=== PATIENT | male | born 1975 | race Caucasian/White ===

== ENCOUNTER 2016-12-19 07:45 | Emergency (ER) | payer MEDICAID ==
[2016-12-19 07:51] VITALS: RESP 18
[2016-12-19] MEDS ORDERED: NS 1,000 ML IV ONE (07:54)
[2016-12-19] MEDS ORDERED: ONDANSETRON 4 MG/2 ML VIAL IVP ONE (07:54)
[2016-12-19 08:07] LABS: % IMMATURE GRANULYOCYTES 0.3 % (0.0-1.1); ABSOLUTE IMMATURE GRANULOCYTES 0.04 10^3/uL (0.00-0.10); ADD DIFF? NO; ADD MORPH? NO; ADD SCAN? NO; ATYPICAL LYMPHOCYTE FLAG 0 (0-99); FRAGMENT RBC FLAG 0 (0-99); HEMOGLOBIN 15.7 g/dL (13.7-17.5); LEFT SHIFT FLG 0 (0-99); LIPEMIA HEMOLYSIS FLAG 90 (0-99); MEAN CELL HEMOGLOBIN 31.7 pg (27.9-34.1); MEAN CELL HEMOGLOBIN CONCENTR. 34.9 g/dL (32.4-36.7); MEAN CELL VOLUME 90.7 fL (81.5-99.8); MEAN PLATELET VOLUME 9.7 fL (8.7-11.7); PLATELET CLUMPS FLAG 10 (0-99); PLATELET COUNT 221 10^3/uL (150-400); RED BLOOD CELL COUNT 4.96 10^6/uL (4.40-6.38); RED CELL DISTRIBUTION WIDTH 12.5 % (11.5-15.2)
--- NOTE | 2016-12-19 08:17 | EDPHY ---
HPI/HX/ROS/PE/MDM Narrative: CHIEF COMPLAINT: "I've been vomiting and my whole body hurts" HPI: The patient is a homeless 41 y/o male complaining of vomiting and myalgias that woke him from sleep about 4 hours ago. He complains of an associated cough and fever. He denies abdominal pain, dysuria, diarrhea. He denies pertinent medical history. He did not receive a flu vaccination this season. REVIEW OF SYSTEMS: Aside from elements discussed in the HPI, a comprehensive 10-point review of systems was reviewed and is negative. PMH: Denies SOCIAL HISTORY: Homeless PHYSICAL EXAM: General:Patient is alert, in no acute distress. ENT:Eyes are normal to inspection. ENT inspection normal. Neck: Normal inspection. Full range of motion. Respiratory:No respiratory distress. Breath sounds normal bilaterally. Cardiovascular: Regular rate and rhythm. Strong peripheral pulses. Normal cap refill. Abdomen:The abdomen is nontender to palpation. There are no peritoneal signs. There are normal bowel sounds. Back: Normal to inspection. No tenderness to palpation. Skin: Normal color. No rash. Warm and dry. Extremities: Normal appearance. Full range of motion. Neuro: Oriented x3. Normal motor function. Normal sensory function. ED Course: IV established. Labs drawn including CBC, CHEM. Flu swab ordered. 1L IV NS and 4mg IV Zofran administered. Patient has tolerated PO fluids and feels improved. He will be discharged home with standard viral syndrome instructions and referral to [facility] if needed. He is comfortable with this plan. MDM: This patient presents with fairly nonspecific symptoms of vomiting and diffuse malaise. His vital signs are normal. He is afebrile and is not hypoxic. Review of his medical records indicates least one other visit for nausea and vomiting of unspecified cause. The patient has no chest pain or abdominal pain or tenderness on exam. His lipase is negative. The etiology of his symptoms is unclear, but he is tolerating food and fluids by mouth without difficulty and remains comfortable. I think he is safe for outpatient workup. - Data Points Laboratory Results: Laboratory Results 12/19/16 07:59 12/19/16 07:59 12/19/16 12/19/16 12/19/16 08:22 07:59 07:59 WBC RBC Hgb Hct MCV MCH MCHC RDW Plt Count MPV Neut % (Auto) Lymph % (Auto) [place] % (Auto) Eos % (Auto) Baso % (Auto) Nucleat RBC Rel Count Absolute Neuts (auto) Absolute Lymphs (auto) Absolute Monos (auto) Absolute Eos (auto) Absolute Basos (auto) Absolute Nucleated RBC Immature Gran % Immature Gran # Sodium 142 mEq/L mEq/L (134-144) Potassium 4.4 mEq/L mEq/L (3.5-5.2) Chloride 106 mEq/L mEq/L (97-110) Carbon Dioxide 25 mEq/l mEq/l (22-31) Anion Gap 11 mEq/L mEq/L (8-16) BUN 19 mg/dL mg/dL (7-23) Creatinine 0.8 mg/dL mg/dL (0.7-1.3) Estimated GFR > 60 Glucose 99 mg/dL mg/dL (70-100) Calcium 9.3 mg/dL mg/dL (8.5-10.4) Lipase 38.0 IU/L IU/L (23-300) Influenza Typ A,B (DFA) NEGATIVE FOR FLU (NEGATIVE) 12/19/16 07:59 WBC 11.61 10^3/uL H 10^3/uL (3.80-9.50) RBC 4.96 10^6/uL 10^6/uL (4.40-6.38) Hgb 15.7 g/dL g/dL (13.7-17.5) Hct 45.0 % % (40.0-51.0) MCV 90.7 fL fL (81.5-99.8) MCH 31.7 pg pg (27.9-34.1) MCHC 34.9 g/dL g/dL (32.4-36.7) RDW 12.5 % % (11.5-15.2) Plt Count 221 10^3/uL 10^3/uL (150-400) MPV 9.7 fL fL (8.7-11.7) Neut % (Auto) 86.4 % H % (39.3-74.2) Lymph % (Auto) 6.2 % L % (15.0-45.0) [place] % (Auto) 5.4 % % (4.5-13.0) Eos % (Auto) 1.2 % % (0.6-7.6) Baso % (Auto) 0.5 % % (0.3-1.7) Nucleat RBC Rel Count 0.0 % % (0.0-0.2) Absolute Neuts (auto) 10.02 10^3/uL H 10^3/uL (1.70-6.50) Absolute Lymphs (auto) 0.72 10^3/uL L 10^3/uL (1.00-3.00) Absolute Monos (auto) 0.63 10^3/uL 10^3/uL (0.30-0.80) Absolute Eos (auto) 0.14 10^3/uL 10^3/uL (0.03-0.40) Absolute Basos (auto) 0.06 10^3/uL 10^3/uL (0.02-0.10) Absolute Nucleated RBC 0.00 10^3/uL 10^3/uL (0-0.01) Immature Gran % 0.3 % % (0.0-1.1) Immature Gran # 0.04 10^3/uL 10^3/uL (0.00-0.10) Sodium Potassium Chloride Carbon Dioxide Anion Gap BUN Creatinine Estimated GFR Glucose Calcium Lipase Influenza Typ A,B (DFA) Medications Given: Discontinued Medications Sodium Chloride (Ns) 1,000 mls @ 0 mls/hr IV ONCE ONE PRN Reason: Wide Open Stop: 12/19/16 07:55 Last Admin: 12/19/16 08:07 Dose: 1,000 mls Ketorolac Tromethamine (Toradol) 30 mg IVP EDNOW ONE Stop: 12/19/16 08:55 Last Admin: 12/19/16 09:01 Dose: 30 mg Ondansetron HCl (Zofran) 4 mg IVP EDNOW ONE Stop: 12/19/16 07:55 Last Admin: 12/19/16 08:07 Dose: 4 mg General Time Seen by Provider: 12/19/16 08:11 Initial Vital Signs: Initial Vital Signs Temperature (C) 36.4 C 12/19/16 07:48 Heart Rate 92 12/19/16 07:48 Respiratory Rate 18 12/19/16 07:48 Blood Pressure 123/84 H 12/19/16 07:48 O2 Sat (%) 93 12/19/16 07:48 O2 Delivery Mode Room Air Allergies/Adverse Reactions: No Known Allergies Allergy (Verified 12/19/16 07:51) Home Medications: Medication Instructions Recorded NK [No Known Home Meds] 04/22/16 Departure - Departure Disposition: Home, Routine, Self-Care Clinical Impression: Nausea, Malaise Condition: Good Instructions: Acute Nausea and Vomiting (ED), Fatigue (ED) Additional Instructions: Follow up with your primary care provider for symptoms not improved over the next week. Use [id number] Tylenol or ibuprofen as directed on the packaging if needed for pain or fever. Referrals: [facility] [Outside] - As per Instructions Report Scribed for: Donald Cavazos Report Scribed by: Gabriela Mena Date of Report: 12/19/16 Time of Report: 08:16 Physician Review and Approval Statement: Portions of this note were transcribed by an ED scribe. I personally performed the history, physical exam, and medical decision making; and confirm the accuracy of the information in the transcribed note.
[2016-12-19 08:20] LABS: ANION GAP 11 mEq/L (8-16); CALCIUM 9.3 mg/dL (8.5-10.4); CARBON DIOXIDE 25 mEq/l (22-31); CHLORIDE 106 mEq/L (97-110); CREATININE 0.8 mg/dL (0.7-1.3); GLOMERULAR FILTRATION RATE > 60; GLUCOSE 99 mg/dL (70-100); POTASSIUM 4.4 mEq/L (3.5-5.2); SODIUM 142 mEq/L (134-144)
[2016-12-19] MEDS ORDERED: KETOROLAC 30 MG/1 ML SDV IVP ONE (08:54)
[2016-12-19 11:34] VITALS: BP 114/80; PULSE 86; TEMP 98.2; O2SAT 92
== END 2016-12-19 11:42 | disposition home or self-care (01) ==
DX: R53.81 Other malaise (principal); R11.0 Nausea; R05 Cough; R50.9 Fever, unspecified
CPT/HCPCS: 96374; J1885; J2405

== ENCOUNTER 2017-01-22 13:51 | Emergency (ER) | payer MEDICAID ==
[2017-01-22] MEDS ORDERED: NS 1,000 ML IV ONE ×2 (14:18→15:15)
[2017-01-22] MEDS ORDERED: ONDANSETRON 4 MG/2 ML VIAL IVP ONE (14:18)
--- NOTE | 2017-01-22 14:20 | EDPHY ---
H & P Stated Complaint: N/V for 5 days and diarrhea since this morning. Time Seen by Provider: 01/22/17 14:17 HPI/ROS: CHIEF COMPLAINT: Nausea vomiting diarrhea x5 days HISTORY OF PRESENT ILLNESS: 41-year-old male history of daily marijuana use, history of daily heavy alcohol use, last drink of alcohol 7 days ago, complaining of nausea, vomiting, diarrhea x5 days. No abdominal pain. No fever or chills. No back or flank pain. No chest pain. No dyspnea. No rash. No trauma. No melena or hematochezia PRIMARY CARE PROVIDER: REVIEW OF SYSTEMS: A ten point review of systems was performed and is negative with the exception of the items mentioned in the HPI PAST MEDICAL & SURGICAL HISTORY: Prior history of similar SOCIAL HISTORY: Daily marijuana, daily alcohol PHYSICAL EXAM (Prior to examination, patient consented to physical exam, hands were washed and my usual and customary physical exam procedures followed) 1) GENERAL: Well-developed, well-nourished, alert and oriented. . 2) HEAD: Normocephalic, atraumatic 3) HEENT: Pupils equal, round, reactive to light bilaterally. Sclera anicteric. Nasopharynx, oropharynx, clear, no lesions. Dry mucous membranes 4) NECK: Full range of motion, no meningeal signs. 5) LUNGS: Clear auscultation bilaterally, no wheezes, no rhonchi, no retractions. 6) HEART: Regular rate and rhythm, no murmur, no heave, no gallop. 7) ABDOMEN: No guarding, no rebound, no focal tenderness, negative McBurney's, negative Fam's, negative Rovsing's, negative peritoneal sign, flat, unable to elicit any abdominal pain on exam 8) MUSCULOSKELETAL: Moving all extremities, no focal areas of tenderness, no obvious trauma. No peripheral edema or discoloration. 9) BACK: No CVA tenderness. 10) SKIN: No rash, no petechiae. 11) Psychiatric: Patient is oriented X 3, there is no agitation. DIFFERENTIAL DIAGNOSIS: My differential diagnosis includes, but is not limited to, cannabis hyperemesis syndrome, cyclic vomiting syndrome, acute appendicitis, acute cholecystitis, bowel obstruction, acute pancreatitis, gastritis . The patient understands that this diagnosis is provisional and can never be 100% accurate. This is a partial list of diagnoses considered. These considerations are based on history, physical exam, past history and reassessment. - Personal History Current Tetanus Diphtheria and Acellular Pertussis (TDAP): Yes - Medical/Surgical History Hx Asthma: No Hx Chronic Respiratory Disease: No Hx Diabetes: No Hx Cardiac Disease: No Hx Renal Disease: No Hx Cirrhosis: No Hx Alcoholism: No Hx HIV/AIDS: No Hx Splenectomy or Spleen Trauma: No Other PMH: Pneumonia 2013 - Social History Smoking Status: Current every day smoker Constitutional: Initial Vital Signs Temperature (C) 36.9 C 01/22/17 14:03 Heart Rate 82 01/22/17 14:03 Respiratory Rate 18 01/22/17 14:03 Blood Pressure 112/69 01/22/17 14:03 O2 Sat (%) 97 01/22/17 14:03 O2 Delivery Mode Nasal Cannula O2 (L/minute) 3 Allergies/Adverse Reactions: No Known Allergies Allergy (Verified 12/19/16 07:51) Home Medications: Medication Instructions Recorded Ondansetron Odt [Zofran Odt] 4 mg PO Q4PRN PRN #10 tab 01/22/17 Pantoprazole Sodium [Protonix 40mg 40 mg PO DAILY #30 tab 01/22/17 (RX)] Medical Decision Making ED Course/Re-evaluation: 2:24 p.m.: Old medical records reviewed. Will administer IV fluids, IV Haldol Zofran reassess 2:59 p.m.: Re-evaluation after IV Haldol, Zofran, complaining of continued nausea without abdominal pain 3:55 p.m.: Re-evaluation, sleeping. Easily woken. Appears comfortable. Will attempt oral intake challenge. If successful will be discharged. At this time I think that acute surgical abdominal pathology, acute appendicitis, bowel obstruction, acute cholecystitis, less than likely in this patient. I stressed the importance of follow up with Gastroenterology. Stressed the importance of alcohol and marijuana cessation. Discussed his H and H which will need to be recheck. No indication for emergent transfusion hospitalization. He remains hemodynamically stable. - Data Points Laboratory Results: Laboratory Results 01/22/17 14:30 01/22/17 14:30 01/22/17 01/22/17 14:30 14:30 WBC 13.49 10^3/uL H 10^3/uL (3.80-9.50) RBC 4.16 10^6/uL L 10^6/uL (4.40-6.38) Hgb 13.2 g/dL L g/dL (13.7-17.5) Hct 36.8 % L % (40.0-51.0) MCV 88.5 fL fL (81.5-99.8) MCH 31.7 pg pg (27.9-34.1) MCHC 35.9 g/dL g/dL (32.4-36.7) RDW 11.8 % % (11.5-15.2) Plt Count 301 10^3/uL 10^3/uL (150-400) MPV 9.1 fL fL (8.7-11.7) Neut % (Auto) 75.5 % H % (39.3-74.2) Lymph % (Auto) 12.5 % L % (15.0-45.0) [place] % (Auto) 11.1 % % (4.5-13.0) Eos % (Auto) 0.1 % L % (0.6-7.6) Baso % (Auto) 0.4 % % (0.3-1.7) Nucleat RBC Rel Count 0.0 % % (0.0-0.2) Absolute Neuts (auto) 10.18 10^3/uL H 10^3/uL (1.70-6.50) Absolute Lymphs (auto) 1.69 10^3/uL 10^3/uL (1.00-3.00) Absolute Monos (auto) 1.50 10^3/uL H 10^3/uL (0.30-0.80) Absolute Eos (auto) 0.01 10^3/uL L 10^3/uL (0.03-0.40) Absolute Basos (auto) 0.05 10^3/uL 10^3/uL (0.02-0.10) Absolute Nucleated RBC 0.00 10^3/uL 10^3/uL (0-0.01) Immature Gran % 0.4 % % (0.0-1.1) Immature Gran # 0.06 10^3/uL 10^3/uL (0.00-0.10) Sodium 131 mEq/L L mEq/L (134-144) Potassium 4.1 mEq/L mEq/L (3.5-5.2) Chloride 96 mEq/L L mEq/L (97-110) Carbon Dioxide 24 mEq/l mEq/l (22-31) Anion Gap 11 mEq/L mEq/L (8-16) BUN 8 mg/dL mg/dL (7-23) Creatinine 0.7 mg/dL mg/dL (0.7-1.3) Estimated GFR > 60 Glucose 91 mg/dL mg/dL (70-100) Calcium 8.6 mg/dL mg/dL (8.5-10.4) Total Bilirubin 1.1 mg/dL mg/dL (0.1-1.4) Conjugated Bilirubin 0.3 mg/dL mg/dL (0.0-0.5) Unconjugated Bilirubin 0.8 mg/dL mg/dL (0.0-1.1) AST 18 IU/L IU/L (17-59) ALT 30 IU/L IU/L (21-72) Alkaline Phosphatase 71 IU/L IU/L (38-126) Total Protein 6.5 g/dL g/dL (6.3-8.2) Albumin 3.3 g/dL L g/dL (3.5-5.0) Lipase 42.0 IU/L IU/L (23-300) Medications Given: Discontinued Medications Diphenhydramine HCl (Benadryl Injection) 25 mg IVP EDNOW ONE Stop: 01/22/17 15:00 Last Admin: 01/22/17 15:15 Dose: 25 mg Haloperidol Lactate (Haldol Injection) 2.5 mg IVP EDNOW ONE Stop: 01/22/17 14:25 Last Admin: 01/22/17 14:40 Dose: 2.5 mg Sodium Chloride (Ns) 1,000 mls @ 0 mls/hr IV ONCE ONE PRN Reason: Wide Open Stop: 01/22/17 14:19 Last Admin: 01/22/17 14:35 Dose: 1,000 mls Sodium Chloride (Ns) 1,000 mls @ 0 mls/hr IV ONCE ONE PRN Reason: Wide Open Stop: 01/22/17 15:16 Last Admin: 01/22/17 15:15 Dose: 1,000 mls Lorazepam (Ativan Injection) 1 mg IVP EDNOW ONE Stop: 01/22/17 15:00 Last Admin: 01/22/17 15:20 Dose: 1 mg Metoclopramide HCl (Reglan Injection) 10 mg IVP EDNOW ONE Stop: 01/22/17 15:00 Last Admin: 01/22/17 15:15 Dose: 10 mg Ondansetron HCl (Zofran) 4 mg IVP EDNOW ONE Stop: 01/22/17 14:19 Last Admin: 01/22/17 14:35 Dose: 4 mg Departure - Departure Disposition: Home, Routine, Self-Care Clinical Impression: Nausea & vomiting Qualifiers: Vomiting type: unspecified Vomiting Intractability: non-intractable Qualified Code(s): R11.2 - Nausea with vomiting, unspecified Condition: Good Instructions: Acute Nausea and Vomiting (ED) Additional Instructions: Seek immediate medical attention if you develop new or worsening symptoms, if you develop fevers, chills, inability to tolerate oral intake or any other symptoms that concerns you. Recommend you stop using marijuana and alcohol. Recommend you follow up with a receiver/laborer. Referrals: [facility],. [Clinic] - 1 day without fail Monroe Garcia MD [Medical Doctor] - 5-7 days, call for appt. (Dr. Monroe Garcia is a receiver/laborer) Prescriptions: Ondansetron Odt [Zofran Odt] 4 mg PO Q4PRN PRN #10 tab PRN Reason: Nausea Pantoprazole Sodium [Protonix 40mg (RX)] 40 mg PO DAILY #30 tab
[2017-01-22] MEDS ORDERED: HALOPERIDOL LACT 5 MG/ML INJ IVP ONE (14:24)
[2017-01-22 14:40] LABS: % IMMATURE GRANULYOCYTES 0.4 % (0.0-1.1); ABSOLUTE IMMATURE GRANULOCYTES 0.06 10^3/uL (0.00-0.10); ADD DIFF? NO; ADD MORPH? NO; ADD SCAN? NO; ATYPICAL LYMPHOCYTE FLAG 10 (0-99); FRAGMENT RBC FLAG 0 (0-99); HEMATOCRIT 36.8 % (40.0-51.0); HEMOGLOBIN 13.2 g/dL (13.7-17.5); LEFT SHIFT FLG 0 (0-99); LIPEMIA HEMOLYSIS FLAG 90 (0-99); MEAN CELL HEMOGLOBIN 31.7 pg (27.9-34.1); MEAN CELL HEMOGLOBIN CONCENTR. 35.9 g/dL (32.4-36.7); MEAN CELL VOLUME 88.5 fL (81.5-99.8); MEAN PLATELET VOLUME 9.1 fL (8.7-11.7); PLATELET CLUMPS FLAG 0 (0-99); PLATELET COUNT 301 10^3/uL (150-400); RED BLOOD CELL COUNT 4.16 10^6/uL (4.40-6.38); RED CELL DISTRIBUTION WIDTH 11.8 % (11.5-15.2)
[2017-01-22 14:52] LABS: ALANINE AMINOTRANSFERASE 30 IU/L (21-72); ALBUMIN 3.3 g/dL (3.5-5.0); ALKALINE PHOSPHATASE 71 IU/L (38-126); ANION GAP 11 mEq/L (8-16); ASPARTATE AMINOTRANSFERASE 18 IU/L (17-59); BILIRUBIN,TOTAL 1.1 mg/dL (0.1-1.4); BILIRUBIN-CONJUGATED 0.3 mg/dL (0.0-0.5); BILIRUBIN-UNCONJUGATED 0.8 mg/dL (0.0-1.1); CALCIUM 8.6 mg/dL (8.5-10.4); CARBON DIOXIDE 24 mEq/l (22-31); CHLORIDE 96 mEq/L (97-110); CREATININE 0.7 mg/dL (0.7-1.3); GLOMERULAR FILTRATION RATE > 60; GLUCOSE 91 mg/dL (70-100); POTASSIUM 4.1 mEq/L (3.5-5.2); SODIUM 131 mEq/L (134-144); TOTAL PROTEIN 6.5 g/dL (6.3-8.2)
[2017-01-22] MEDS ORDERED: METOCLOPRAMIDE 10 MG/2 ML VIAL IVP ONE (14:59)
[2017-01-22] MEDS ORDERED: LORazepam 2 MG/ML INJ IVP ONE (14:59)
[2017-01-22 15:02] VITALS: RESP 20
[2017-01-22 16:07] VITALS: TEMP 99.7
[2017-01-22] MEDS ORDERED: ACETAMINOPHEN 500 MG TAB PO ONE (16:20)
[2017-01-22] MEDS ORDERED: ACETAMINOPHEN 500 MG TAB ONE (16:21)
[2017-01-22 16:25] VITALS: BP 108/66; PULSE 87; O2SAT 94
== END 2017-01-22 16:30 | disposition home or self-care (01) ==
DX: R11.2 Nausea with vomiting, unspecified (principal); F17.200 Nicotine dependence, unspecified, uncomplicated
CPT/HCPCS: 96374; J1200; J2060; J2405; J2765

== ENCOUNTER 2017-05-13 03:48 | Observation (INO) | payer MEDICAID ==
[2017-05-13 04:03] LABS: % IMMATURE GRANULYOCYTES 0.5 % (0.0-1.1); ABSOLUTE IMMATURE GRANULOCYTES 0.06 10^3/uL (0.00-0.10); ADD DIFF? NO; ADD MORPH? NO; ADD SCAN? NO; ATYPICAL LYMPHOCYTE FLAG 30 (0-99); FRAGMENT RBC FLAG 0 (0-99); HEMATOCRIT 44.4 % (40.0-51.0); HEMOGLOBIN 14.8 g/dL (13.7-17.5); LEFT SHIFT FLG 0 (0-99); LIPEMIA HEMOLYSIS FLAG 80 (0-99); MEAN CELL HEMOGLOBIN 30.7 pg (27.9-34.1); MEAN CELL HEMOGLOBIN CONCENTR. 33.3 g/dL (32.4-36.7); MEAN CELL VOLUME 92.1 fL (81.5-99.8); MEAN PLATELET VOLUME 9.1 fL (8.7-11.7); PLATELET CLUMPS FLAG 50 (0-99); PLATELET COUNT 425 10^3/uL (150-400); RED BLOOD CELL COUNT 4.82 10^6/uL (4.40-6.38); RED CELL DISTRIBUTION WIDTH 13.2 % (11.5-15.2)
[2017-05-13] MEDS ORDERED: LIDOCAINE 1% 300 MG/30 ML SDV ONE (04:08)
[2017-05-13] MEDS ORDERED: fentaNYL 100 MCG/2 ML INJ ONE (04:09)
[2017-05-13] MEDS ORDERED: NS 1,000 ML IV ONE (04:09)
[2017-05-13] MEDS ORDERED: MIDAZOLAM 2 MG/2 ML VIAL ONE (04:09)
[2017-05-13] MEDS ORDERED: IOPAMIDOL (ISOVUE-370) 150 ML BTL IV ONE (04:09)
--- NOTE | 2017-05-13 04:09 | EDPHY ---
H & P Stated Complaint: CHEST PAIN 08/04 WOKE PT UP Time Seen by Provider: 05/13/17 03:52 HPI/ROS: HPI The patient presents brought in by ambulance as cardiac alert with chest pain that began at about 3:00 a.m. when he awoke from sleep after hearing his roommates alarm clock. He says the pain is crushing in nature, in the left side of his chest, has been constant and is severe. He has associated shortness of breath, nausea and vomiting. The pain is not positional. He has no prior history of similar pain. He is a half a pack a day smoker, denies any family history of CAD. He drinks alcohol and his last alcoholic drink was at 5: 00 p.m. last night. REVIEW OF SYSTEMS Constitutional: No fever, no chills. Eyes: No discharge. ENT: No sore throat. Cardiovascular: Positive for chest pain, no palpitations. Respiratory: No cough, positive for shortness of breath. Gastrointestinal: No abdominal pain, no vomiting. Genitourinary: No hematuria. Musculoskeletal: No back pain. Skin: No rashes. Neurological: No headache. PMHx: Denies any past medical history Soc Hx: Smoker, lives with roommates, who uses marijuana for back pain PHYSICAL General Appearance: Alert, uncomfortable appearing Eyes: Pupils equal and round no pallor or injection ENT, Mouth: Mucous membranes moist Respiratory: There are no retractions, lungs are clear to auscultation Cardiovascular: Regular rate and rhythm Gastrointestinal: Abdomen is soft and non-tender, no masses, bowel sounds normal Neurological: A&O, moves all extremities Skin: Warm and dry, no rashes Musculoskeletal: Neck is supple non tender Extremities: symmetrical, full range of motion Psychiatric: Patient is oriented X 3, there is no agitation Source: Patient, EMS, Old records Exam Limitations: No limitations - Personal History Current Tetanus/Diphtheria Vaccine: Yes Current Tetanus Diphtheria and Acellular Pertussis (TDAP): Yes - Medical/Surgical History Hx Asthma: No Hx Chronic Respiratory Disease: No Hx Diabetes: No Hx Cardiac Disease: No Hx Renal Disease: No Hx Cirrhosis: No Hx Alcoholism: No Hx HIV/AIDS: No Hx Splenectomy or Spleen Trauma: No Other PMH: Pneumonia 2013 - Social History Smoking Status: Current every day smoker Constitutional: Initial Vital Signs Temperature (C) 36.7 C 05/13/17 03:52 Heart Rate 89 05/13/17 03:52 Respiratory Rate 18 05/13/17 03:52 Blood Pressure 144/100 H 05/13/17 03:52 O2 Sat (%) 95 05/13/17 03:52 O2 Delivery Mode Room Air Allergies/Adverse Reactions: No Known Allergies Allergy (Verified 05/13/17 04:04) Home Medications: Medication Instructions Recorded NK [No Known Home Meds] 05/13/17 Medical Decision Making - Diagnostics EKG Interpretation: EKG: Complete interpretation has been separately recorded in the [employer] archive. Summary impression: ST segment elevation in 2, AVF, no old for comparison Differential Diagnosis: This is a 41-year-old male, history of tobacco smoking who presents brought in by ambulance for severe chest pain which awoke him from sleep which is left- sided, crushing, associated with shortness of breath, nausea and vomiting. He has no prior history of similar. Differential diagnosis includes ACS, pericarditis, myocarditis, GERD. In the emergency room, patient was placed immediately to a high acuity room. I met the paramedics at the bedside to obtain their report. I reviewed the EKGs. The patient has already received aspirin. He was placed on the cardiac nurse practitioner. Vital signs were stable though he was slightly hypertensive. He was given morphine for pain. Dr. Guevara from Cardiology plans to take the patient to the cardiac catheterization lab. - Data Points Laboratory Results: Laboratory Results 05/13/17 03:50 05/13/17 05/13/17 03:50 03:50 WBC 12.02 10^3/uL H 10^3/uL (3.80-9.50) RBC 4.82 10^6/uL 10^6/uL (4.40-6.38) Hgb 14.8 g/dL g/dL (13.7-17.5) Hct 44.4 % % (40.0-51.0) MCV 92.1 fL fL (81.5-99.8) MCH 30.7 pg pg (27.9-34.1) MCHC 33.3 g/dL g/dL (32.4-36.7) RDW 13.2 % % (11.5-15.2) Plt Count 425 10^3/uL H 10^3/uL (150-400) MPV 9.1 fL fL (8.7-11.7) Neut % (Auto) 61.4 % % (39.3-74.2) Lymph % (Auto) 26.3 % % (15.0-45.0) [place] % (Auto) 9.3 % % (4.5-13.0) Eos % (Auto) 1.6 % % (0.6-7.6) Baso % (Auto) 0.9 % % (0.3-1.7) Nucleat RBC Rel Count 0.0 % % (0.0-0.2) Absolute Neuts (auto) 7.38 10^3/uL H 10^3/uL (1.70-6.50) Absolute Lymphs (auto) 3.16 10^3/uL H 10^3/uL (1.00-3.00) Absolute Monos (auto) 1.12 10^3/uL H 10^3/uL (0.30-0.80) Absolute Eos (auto) 0.19 10^3/uL 10^3/uL (0.03-0.40) Absolute Basos (auto) 0.11 10^3/uL H 10^3/uL (0.02-0.10) Absolute Nucleated RBC 0.00 10^3/uL 10^3/uL (0-0.01) Immature Gran % 0.5 % % (0.0-1.1) Immature Gran # 0.06 10^3/uL 10^3/uL (0.00-0.10) Sodium Pending Potassium Pending Chloride Pending Carbon Dioxide Pending Anion Gap Pending BUN Pending Creatinine Pending Estimated GFR Pending Glucose Pending Calcium Pending Troponin I Pending NT-Pro-B Natriuret Pep Pending Departure - Departure Disposition: [facility] Inpatient Acute Clinical Impression: Chest pain Qualifiers: Chest pain type: unspecified Qualified Code(s): R07.9 - Chest pain, unspecified Condition: Fair Referrals: Patient,NotPresent [Primary Care Provider] - As per Instructions
[2017-05-13 04:20] LABS: POTASSIUM 5.1 mEq/L (3.5-5.2); SODIUM 142 mEq/L (134-144)
[2017-05-13 04:21] LABS: ANION GAP 13 mEq/L (8-16); CALCIUM 9.3 mg/dL (8.5-10.4); CARBON DIOXIDE 22 mEq/l (22-31); CHLORIDE 107 mEq/L (97-110); CREATININE 0.7 mg/dL (0.7-1.3); GLOMERULAR FILTRATION RATE > 60; GLUCOSE 119 mg/dL (70-100)
[2017-05-13 04:32] LABS: TROPONIN I < 0.012 ng/mL (0-0.034)
[2017-05-13] MEDS ORDERED: ONDANSETRON 4 MG/2 ML VIAL ONE (04:34)
[2017-05-13] MEDS ORDERED: BIVALIRUDIN 250 MG/5 ML VIAL IV ONE (04:35)
--- NOTE | 2017-05-13 04:45 | CPEKG ---
Heart Rate: 89 RR Interval: 674 P-R Interval: 212 QRSD Interval: 90 QT Interval: 376 QTC Interval: 458 P [place]: 67 QRS [place]: 34 T Wave [place]: 36 EKG Severity - ABNORMAL ECG - EKG Impression: SINUS RHYTHM EKG Impression: FIRST DEGREE AV BLOCK EKG Impression: PROBABLE LEFT VENTRICULAR HYPERTROPHY EKG Impression: ST ELEVATION, PROBABLE LATERAL INJURY EKG Impression: ST ELEVATION, CONSIDER INFERIOR INJURY Electronically Signed By: Umu Zacarias 14-May-2017 06:04:49
[2017-05-13] MEDS ORDERED: ACETAMINOPHEN 325 MG TAB PO PRN (05:12)
[2017-05-13] MEDS ORDERED: HYDROCODONE/APAP 5/325 TAB PO PRN (05:12)
[2017-05-13] MEDS ORDERED: ONDANSETRON DISINTEGRATING 4 MG TAB PO PRN (05:12)
[2017-05-13] MEDS ORDERED: NITROGLYCERIN 0.4 MG BTL SL PRN (05:12)
[2017-05-13] MEDS ORDERED: ONDANSETRON 4 MG/2 ML VIAL IVP PRN (05:12)
[2017-05-13] MEDS ORDERED: ATROPINE SULFATE 1 MG/10 ML SYR IVP PRN (05:12)
[2017-05-13] MEDS ORDERED: NS 1,000 ML IV SCH (05:15)
[2017-05-13] MEDS ORDERED: KETOROLAC 30 MG/1 ML SDV IVP PRN (05:21)
[2017-05-13] MEDS ORDERED: KETOROLAC 30 MG/1 ML SDV ONE (05:28)
[2017-05-13] MEDS ORDERED: FAMOTIDINE 20 MG TAB PO SCH (09:00)
--- NOTE | 2017-05-13 09:43 | GHP ---
[f rep st] HISTORY AND PHYSICAL DATE OF ADMISSION: 05/13/2017 CHIEF COMPLAINT: Chest pain. HISTORY OF PRESENT ILLNESS: The patient was awakened from sleep by his roommate's alarm and noticed sudden onset of acute chest pain which was severe, 7 to 8/10 in severity, which was crushing in [place] ure, and on the left side of his sternum. It was associated with shortness of breath, nausea and vom iting. The pain was not worse with position but seemed to be worse with a deep breath. He has had no prior history of similar pain. He has not had a history of coronary disease. He denies a family his tory of premature coronary disease in his family. His mother of cancer at age 49. He did not kn ow his father or his father's history. He drinks alcohol and had his last alcoholic beverage at 5:00 p.m. last night. REVIEW OF SYSTEMS: CONSTITUTIONAL: He has no fever or chills. CARDIOVASCULAR: Positive for chest pa in without palpitations. He has not had recent travel, leg swelling or cough. He has not had fever o r chills. ABDOMEN: He has had no abdominal pain. : He has not had hematuria or hematemesis. BACK: He has no back pain. SKIN: No rash. PAST MEDICAL HISTORY: Negative for hypertension, diabetes or dyslipidemia. 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 He has an occasional alcoholic beverage. He smokes 1/2 pack per day for many yea rs and uses marijuana as needed for back pain. PHYSICAL EXAM: IN GENERAL: He appears anxious and uncomfortable. VITAL SIGNS: Reveal that he is hyp ertensive, blood pressure 144/100. Heart rate is 90 and regular, respirations 16 and unlabored, oxyg en saturation 95% on room air. He is afebrile at 36.7. NECK: No JVD or carotid bruit. HEART: Normal S1 and S2 without obvious pericardial friction rub. LUNGS: Clear to auscultation bilaterally without wheezes, rales or rhonchi. ABDOMEN: Soft with positive bowel sounds. It is nondistended and nontend er. EXTREMITIES: Warm, dry, and well perfused without significant peripheral edema. STUDIES: Portable chest x-ray reveals that his cardiac silhouette is normal in size. It looks like a poor inspiratory effort and there may be some consolidation in the right upper lobe of the lung. A n official radiographic report has not been called on this chest x-ray at this time. EKG reveals normal sinus rhythm, with P-R segment depression in lead 2, P-R segment elevation in the AVR, and relatively diffuse and nonspecific ST-T abnormalities that are most consistent with perica rditis, although the ST-T wave contour in V3 and V4 on some of the EKGs that were obtained could be consistent with an anterior injury pattern. The EKG interpretation on several of them reveals possib le lateral or inferior injury and on 1 or 2 of the EKGs obtained, appears to be read as an acute javon cardial infarction. IMPRESSION AND PLAN: The patient has an acute chest pain syndrome with severe and unrelenting pain. He is a smoker and does not know whether or not he has a premature family history of cardiovascular illness. Given the acute nature of his pain and the EKG abnormalities, I think would be most james t to proceed with an immediate cardiac catheterization to rule out flow-limiting coronary disease, s pontaneous coronary artery dissection, or acute coronary syndrome as cause for the patient's chest p ain. I have explained the risks, benefits, alternatives of this course of action. The patient is himanshu ling to proceed as planned. He will be taken emergently as a cardiac alert to the catheterization la boratory. Copy requested to: PCP /[id number]
[2017-05-13] MEDS ORDERED: COLCHICINE 0.6 MG CAP/TAB PO SCH (10:30)
--- NOTE | 2017-05-13 10:35 | SOAPPROG ---
RYAN Progress Note Assessment/Plan: Assessment: Acute, sharp and respiratory phasic chest discomfort. His clinical presentation and electrocardiogram are most consistent with acute pericarditis. His cardiac catheterization was normal. His initial cardiac enzymes are negative. He has been hemodynamically stable. Clinically he has responded nicely to his initial dose of nonsteroidal anti-inflammatory drugs. Plan: 1. He will be transitioned over to oral nonsteroidals. I have started him on colchicine 0.6 mg twice daily and ibuprofen 600 mg 3 times daily. 2. We will continue to trend his cardiac enzymes. 3. He has an ECG ordered for noon today. 4. I would like to review his echocardiogram. 5. Can have regular diet. 6. Depending on his clinical course today, we may be able to discharge him later this afternoon with close follow-up. 05/13/17 10:34 Subjective: Patient was seen and examined. His chart was reviewed. I personally reviewed his cardiac catheterization from earlier this morning. There is a full and detailed separately dictated history and physical on the chart. He was awakened early this morning with abrupt onset central sharp respiratory phasic chest discomfort. As result she presented to the emergency department with active pain. His electrocardiogram demonstrated ST elevations without reciprocal changes. As a result, he underwent cardiac catheterization which was normal. He has been treated with nonsteroidals. Presently states he feels a little bit better. He still has pain with very deep inspiration. Has no recent systemic illnesses. Denies a history of DVT. There is no history of PE. With the exception of occasional marijuana he does not use any drugs. Objective: Vital Signs Temp Pulse Resp BP Pulse Ox 36.7 C 95 12 96/67 L 94 05/13/17 06:30 05/13/17 07:17 05/13/17 07:17 05/13/17 07:17 05/13/17 07:17 Physical Exam - Physical Exam General Appearance: WD/WN, other (disheveled, adentulous) Neck: non-tender Respiratory: lungs clear Cardiac/Chest: regular rate, rhythm, No edema, No gallop, No JVD Peripheral Pulses: 2+: carotid (R), carotid (L) Abdomen: non-tender, soft Male Genitalia: deferred Rectal: deferred Neuro/Psych: alert, oriented x 3 ICD10 Worksheet Patient Problems: Problems Problem Status Onset Chest pain Acute
--- NOTE | 2017-05-13 11:26 | CPEKG ---
Heart Rate: 64 RR Interval: 938 P-R Interval: 192 QRSD Interval: 90 QT Interval: 400 QTC Interval: 413 P Medora: 65 QRS Medora: 50 T Wave Medora: 48 EKG Severity - ABNORMAL ECG - EKG Impression: SINUS RHYTHM EKG Impression: PERICARDITIS PATTERN Electronically Signed By: Moshe Duran 13-May-2017 23:17:42
--- NOTE | 2017-05-13 13:09 | ECHO ---
[id number] + + [address] : : [place] [address] : : [phone] + + Adult Echocardiographic Report + -----+ :Name: ETHAN COLLIER LStudy Date: 05/13/2017 07:49 AM : : Hospital Admission Number: [id number] Location : 217: :: 1975 Gender: Male Height: 72 in : :Age: 41 yrs Race: WH Weight: 140 lb : :Reason For Study: Chest pain/probable pericarditis : : BSA: 1.8 meters2 : + -----+ MMode/2D Measurements \T\ Calculations IVSd: 0.88 cm LVIDd: 5.1 cm FS: 42.9 % Ao root diam: LVPWd: 0.83 cm LVIDs: 2.9 cm EDV(Teich): 3.6 cm 123.2 ml LA dimension: ESV(Teich): 3.1 cm 32.4 ml EF(Teich): 73.7 % LVLd ap4: 8.2 cm SV(MOD-sp4): EDV(MOD-sp4): 63.0 ml 96.0 ml LVLs ap4: 6.8 cm ESV(MOD-sp4): 33.0 ml EF(MOD-sp4): 65.6 % Normal Measurement Values: + + :LVIDd (3.5-5.7cm) IVSd (0.6-1.1cm) LVPWd (0.6-1.1cm) Aortic Root (2.0-3.7cm)Left Atrium (1.5-4.0cm): :LV Vol(d) (76-115ml) LV Vol(s) (29-48ml) Ejec Fraction (50-65%)PV Rahat (0.6- 1.2m/s) TV Rahat (0.4-1.0m/s) : :MV E Rahat (0.8-1.0m/s)MV A Rahat (0.3-1.0m/s)LVOT Rahat (0.7-1.2m/s) Asc Ao Rahat ( 0.9-1.8m/s) : + + Doppler Measurements \T\ Calculations MV E max rahat: 98.7 cm/sec Ao V2 max: 101.8 cm/sec Ao max P.1 mmHg Left Ventricle The left ventricle is normal in size. There is normal left ventricular wall thickness. Left ventricular systolic function is normal. Ejection Fraction = 60-65%. No regional wall motion abnormalities noted. Right Ventricle The right ventricle is normal in size and function. Atria The left atrial size is normal. Right atrial size is normal. The atrial septum is aneurysmal. Mitral Valve The mitral valve is normal in structure and function. There is no evidence of mitral valve prolapse. There is no mitral valve stenosis. There is trace mitral regurgitation. Tricuspid Valve Normal tricuspid valve. There is trace tricuspid regurgitation. Aortic Valve The aortic valve is trileaflet. The aortic valve opens well. There is no aortic stenosis. There is no aortic insufficiency. Pulmonic Valve The pulmonic valve is normal in structure and function. There is no pulmonic valvular regurgitation. Great Vessels The aortic root is normal size. Pericardium/Pleural Trivial anterior pericardial effusion. Conclusion A complete two-dimensional transthoracic echocardiogram was performed (2D, M-mode, Doppler and color flow Doppler). Left ventricular size and systolic function are normal. Ejection Fraction = 60-65%. Normal wall motion. Valve appearance is normal. The atrial septum is aneurysmal. There is trace mitral regurgitation. There is trace tricuspid regurgitation. Trivial anterior pericardial effusion Final Reading Physician: Radha Frazier signed on 05/13/2017 01:07 PM Ordering Physician: Christo Guevara Performed By: Cici Hannon, FERMINCS
[2017-05-13] MEDS ORDERED: IBUPROFEN 600 MG TAB PO SCH (14:00)
[2017-05-13 15:14] VITALS: BP 109/74; PULSE 80; RESP 18; TEMP 98.7; O2SAT 93
--- NOTE | 2017-05-13 15:15 | CPIP ---
[f rep st] INVASIVE CARDIAC PROCEDURE DATE OF PROCEDURE: 05/13/2017 PROCEDURE PERFORMED: 1. Selective coronary angiography. 2. Left heart catheterization. 3. Left ventriculogram. 4. TR band Angio-Seal arteriotomy repair. This was a right femoral artery approach. COMPLICATIONS: None. INDICATIONS FOR THE PROCEDURE: The patient was called as a cardiac alert, 05/04 to 8/10 unrelenting chest pain that awakened him from sleep at approximately 3 in the morning. He presented with severe pain that was not positional and did not seem to increase or worsen with respiration. The patient also had an abnormal EKG with ST-T abnormalities suggestive of a possible acute lateral injury indigo roberts. I was asked to see the patient for consultation. We felt the differential diagnosis included a cute myocardial infarction, pericarditis, myocarditis, pulmonary embolus, gastroesophageal reflux, o r stomach ulceration. Given the EKG changes, felt it was most prudent to take the patient to the ca theterization laboratory for definitive diagnosis. PROCEDURE IN DETAIL: After informed consent was obtained, n.p.o. status was confirmed, the patient was taken immediately to the catheterization laboratory. The region of the right groin was cleaned, prepped, and draped in sterile fashion. Micropuncture access kit was used to place a 6-Macedonian damon th using modified Seldinger technique. The patient underwent the previously mentioned diagnostic pr ocedure with use of JL4 and R4 curved coronary catheters, as well as a 6-Macedonian pigtail catheter. S giovanni wire exchange technique was utilized for all catheter exchanges. The left main coronary lumen is approximately 8 mm in size. It bifurcates into an LAD and circumfle x system. The LAD proximally is 3.5 to 4 mm in size and has ARASH-3 flow. All septal and diagonal b ranches are identified. There is no evidence of ghosting of any blood vessels, thrombus, or dissect ion. There is ARASH-3 flow throughout the vessel without dye staining of the blood vessel. The left circumflex is 4 mm in size. It gives rise to several important obtuse marginal branches which are free of flow-limiting disease. There was ARASH-3 flow throughout, and again, no dissection or thromb us is identified. The right coronary artery is a quite small but a dominant vessel giving rise to the posterior descen ding vessel. It is approximately 2.5 mm in size with ARASH-3 flow. All branches are accounted for, and no evidence of acute vessel closure, dissection, or thrombus is identified. Patient underwent left heart catheterization demonstrating mildly elevated left ventricular end-frias tolic pressure measured at 17 mmHg. The patient underwent left ventriculogram in the WATERS projection demonstrating preserved left ventricular systolic function, ejection fraction is 65%. There was bi llowing of the posterior leaflet of the mitral valve under pressurized injection which may be consis tent with posterior leaflet prolapse. No significant mitral regurgitation was noted. The visualize d portion of the thoracic aorta revealed an aorta that was normal in size without obvious dissection or thrombus. ASSESSMENT: Acute chest pain syndrome with severe and unrelenting pain and EKG changes that are mos t consistent with pericarditis. The patient will be admitted on telemetry given intravenous nonsteroidal anti-inflammatory agents. His troponins will be trended and an echocardiogram obtained to rule out a pericardial effusion in t he morning. FINAL IMPRESSION: Acute pericarditis. /[id number]/MODL
--- NOTE | 2017-05-14 09:33 | GDS ---
[f rep st] DISCHARGE SUMMARY DISCHARGE DIAGNOSIS: Acute pericarditis. HISTORY OF PRESENT ILLNESS: The patient is 41 years old. He presents to the hospital with acute on set left-sided chest discomfort rated at 7/10 to 8/10 in severity. The chest discomfort was respiro phasic and sharp in character. He had an initial EKG demonstrating [place] depression and ST elevation w ithout reciprocal changes. Because of his ST changes, he was taken the cardiac catheterization, whi ch demonstrated normal coronary arteries. His ejection fraction was likewise normal. A followup ec hocardiogram indicated only a trivial effusion. During this hospitalization, sequential cardiac enz ymes were drawn which were noted to be normal. After treatment with intravenous anti-inflammatory m edications, his chest pain decreased to 1/10 and he was comfortable. He had no indication of DVT or PE. He had no oxygen requirement or fever during this hospitalization. At the time of discharge, he is up ambulating on the [place]chola and feeling well. DISCHARGE MEDICATIONS: 1. Colchicine 0.6 mg 1 tablet twice daily. 2. Ibuprofen 600 mg 1 pill 3 times daily with food. FOLLOWUP: He will follow up with myself at [facility] within the next 7-10 days. /[id number]/MODL
== END 2017-05-13 16:34 | disposition home or self-care (01) ==
LOC: EDUNIT# → FCATH 04:28 → INTOOBSV 05:07 → F2N 05:07 → F2W 06:11
PROVIDERS: ADMIT Internal Medicine Cardiovascular Disease; ATTEND Internal Medicine Cardiovascular Disease
PROC: B2151ZZ Fluoroscopy of Left Heart using Low Osmolar Contrast (ICD-10-PCS; principal; 2017-05-13)
PROC: 4A023N7 Measurement of Cardiac Sampling and Pressure, Left Heart, Percutaneous Approach (ICD-10-PCS; principal; 2017-05-13)
PROC: B2111ZZ Fluoroscopy of Multiple Coronary Arteries using Low Osmolar Contrast (ICD-10-PCS; principal; 2017-05-13)
DX: I30.9 Acute pericarditis, unspecified (principal); R94.31 Abnormal electrocardiogram [ECG] [EKG]; F17.210 Nicotine dependence, cigarettes, uncomplicated
CPT/HCPCS: 71010; 93005; 93306; 93458; 96361; 96374; 99285; G0378; C1760; J0583; J1644; J1885; J2250; J2405; J3010; Q9967

== ENCOUNTER 2017-05-15 20:25 | Emergency (ER) | payer MEDICAID ==
--- NOTE | 2017-05-15 20:39 | EDPHY ---
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 Final diagnosis was pericarditis. He has been placed on culture seen. He states ever since starting culture seen he has had nausea vomiting and a global throbbing headache times 48 hours. No fever. He denies chest pain or shortness of breath. Presents back to the emergency room by private vehicle for global throbbing headache with nausea vomiting. He tells me he has a history of migraines and this feels very similar. This was not thunderclap headache. this was not sudden onset. He has no neck pain no numbness tingling no focal weakness. Past Medical History: Recent hospital admission for ST elevation [place] turn to be acute pericarditis Past Surgical History: PTCA right femoral access Social History: smokes tobacco, Occasional alcohol, denies illicit drug Family History: noncontributory ROS REVIEW OF SYSTEMS: A comprehensive 10 point review of systems is otherwise negative aside from elements mentioned in the history of present illness. Exam Constitutional appears well nontoxic, triage nursing summary reviewed, vital signs reviewed, awake/alert. Eyes normal conjunctivae and sclera, EOMI, PERRLA. HENT normal inspection, atraumatic, moist mucus membranes, no epistaxis, neck supple/ no meningismus, no raccoon eyes. Respiratory clear to auscultation bilaterally, normal breath sounds, no respiratory distress, no wheezing. Cardiovascular no murmur rub,rate normal, regular rhythm, no murmur, no edema , distal pulses normal. Gastrointestinal soft, non-tender, no rebound, no guarding, normal bowel sounds, no distension, no pulsatile mass. Genitourinary no CVA tenderness. Musculoskeletal no midline vertebral tenderness, full range of motion, no calf swelling, no tenderness of extremities, no meningismus, good pulses, neurovascularly intact. Skin pink, warm, & dry, no rash, skin atraumatic. Neurologic awake, alert and oriented x 3, AAOx3, moves all 4 extremities equally, motor intact, sensory intact, CN II-XII intact, normal cerebellar, normal vision, normal speech. Psychiatric normal mood/affect. Heme/Lymph/Immune no lymphadenopathy. Differential Diagnosis: includes but is not includes but is not limited to in a particular order migraine headache, tension headache, cluster headache, intracranial bleed, dehydration, electrolyte disturbance Medical Decision Making: plan for this patient IV establishment, IV fluid bolus , Zofran for nausea Dilaudid for pain control. CT head without contrast for headache. And re-evaluate. He has no chest pain or shortness of breath he tells me feels much better after starting anti-inflammatories and culture seen. Over the culture seen he thinks is giving him headaches. Re-evaluation: ED CT head without IV contrast negative for acute intracranial abnormality. Dr. Hansen. 2151: Re-evaluation at this time this patient is resting comfortably tells me his headache is completely resolved. He feels much better. No nausea vomiting. No fever here. His blood work does show a mild leukocytosis is most likely from vomiting. I will allow him to go home with Zofran for nausea. I do explain he should continue his culture seen. As this is being used to treat his acute pericarditis. Here in the emergency room he denies chest pain or shortness of breath states he feels otherwise well. He is requesting discharge. Source: Patient - Personal History Current Tetanus/Diphtheria Vaccine: Yes Current Tetanus Diphtheria and Acellular Pertussis (TDAP): Yes - Medical/Surgical History Hx Asthma: No Hx Chronic Respiratory Disease: No Hx Diabetes: No Hx Cardiac Disease: No Hx Renal Disease: No Hx Cirrhosis: No Hx Alcoholism: No Hx HIV/AIDS: No Hx Splenectomy or Spleen Trauma: No Other PMH: Pneumonia 2013 - Social History Smoking Status: Current every day smoker Constitutional: Initial Vital Signs Temperature (C) 36.4 C 05/15/17 20:32 Heart Rate 119 H 05/15/17 20:32 Respiratory Rate 18 05/15/17 20:32 Blood Pressure 118/96 H 05/15/17 20:32 O2 Sat (%) 92 05/15/17 20:32 O2 Delivery Mode Room Air Allergies/Adverse Reactions: No Known Allergies Allergy (Verified 05/13/17 04:04) Home Medications: Medication Instructions Recorded Colchicine [Colchicine (*)] 0.6 mg PO BID #60 ea 05/13/17 Ibuprofen [Motrin (*)] 600 mg PO Q8HRS #30 tab 05/13/17 Ondansetron HCl [Zofran] 4 mg PO Q4-6PRN PRN #10 tablet 05/15/17 Medical Decision Making - Diagnostics Imaging Results: Imaging Impressions Head CT 05/15/17 20:46 Impression: Normal noncontrast CT of the brain. Results called to Dr. Víctor Ortez at 9:08 PM at the time of the interpretation. - Data Points Laboratory Results: Laboratory Results 05/15/17 21:02 05/15/17 21:02 05/15/17 05/15/17 21:02 21:02 WBC 18.63 10^3/uL H 10^3/uL (3.80-9.50) RBC 4.46 10^6/uL 10^6/uL (4.40-6.38) Hgb 13.4 g/dL L g/dL (13.7-17.5) Hct 39.4 % L % (40.0-51.0) MCV 88.3 fL fL (81.5-99.8) MCH 30.0 pg pg (27.9-34.1) MCHC 34.0 g/dL g/dL (32.4-36.7) RDW 13.1 % % (11.5-15.2) Plt Count 372 10^3/uL D 10^3/uL (150-400) MPV 9.0 fL fL (8.7-11.7) Neut % (Auto) 80.8 % H % (39.3-74.2) Lymph % (Auto) 7.9 % L % (15.0-45.0) Carter % (Auto) 10.3 % % (4.5-13.0) Eos % (Auto) 0.1 % L % (0.6-7.6) Baso % (Auto) 0.3 % % (0.3-1.7) Nucleat RBC Rel Count 0.0 % % (0.0-0.2) Absolute Neuts (auto) 15.08 10^3/uL H 10^3/uL (1.70-6.50) Absolute Lymphs (auto) 1.47 10^3/uL 10^3/uL (1.00-3.00) Absolute Monos (auto) 1.91 10^3/uL H 10^3/uL (0.30-0.80) Absolute Eos (auto) 0.01 10^3/uL L 10^3/uL (0.03-0.40) Absolute Basos (auto) 0.05 10^3/uL 10^3/uL (0.02-0.10) Absolute Nucleated RBC 0.00 10^3/uL 10^3/uL (0-0.01) Immature Gran % 0.6 % % (0.0-1.1) Immature Gran # 0.11 10^3/uL H 10^3/uL (0.00-0.10) Sodium 135 mEq/L mEq/L (134-144) Potassium 4.1 mEq/L mEq/L (3.5-5.2) Chloride 100 mEq/L mEq/L (97-110) Carbon Dioxide 19 mEq/l L mEq/l (22-31) Anion Gap 16 mEq/L mEq/L (8-16) BUN 12 mg/dL mg/dL (7-23) Creatinine 0.8 mg/dL mg/dL (0.7-1.3) Estimated GFR > 60 Glucose 127 mg/dL H mg/dL (70-100) Calcium 9.0 mg/dL mg/dL (8.5-10.4) Total Bilirubin 0.9 mg/dL mg/dL (0.1-1.4) Conjugated Bilirubin 0.5 mg/dL mg/dL (0.0-0.5) Unconjugated Bilirubin 0.4 mg/dL mg/dL (0.0-1.1) AST 19 IU/L IU/L (17-59) ALT 27 IU/L IU/L (21-72) Alkaline Phosphatase 121 IU/L IU/L (38-126) Total Protein 7.6 g/dL g/dL (6.3-8.2) Albumin 3.5 g/dL g/dL (3.5-5.0) Lipase 12.0 IU/L L IU/L (23-300) Medications Given: Discontinued Medications Hydromorphone HCl (Dilaudid) 0.5 mg IVP EDNOW ONE Stop: 05/15/17 20:45 Last Admin: 05/15/17 21:11 Dose: 0.5 mg Sodium Chloride (Ns) 1,000 mls @ 0 mls/hr IV EDNOW ONE; Wide Open PRN Reason: Protocol Stop: 05/15/17 20:45 Last Admin: 05/15/17 21:12 Dose: 1,000 mls Ondansetron HCl (Zofran) 4 mg IVP EDNOW ONE Stop: 05/15/17 20:45 Last Admin: 05/15/17 21:12 Dose: 4 mg Departure - Departure Disposition: Home, Routine, Self-Care Clinical Impression: Nausea and vomiting Qualifiers: Vomiting type: unspecified Vomiting Intractability: non-intractable Qualified Code(s): R11.2 - Nausea with vomiting, unspecified Condition: Good Instructions: Acute Nausea and Vomiting (ED) Additional Instructions: 1. Try to stay well-hydrated drink lots of fluids. 2. If he develops chest pain or shortness of breath or continue have severe vomiting return to the emergency room. Referrals: NONE *PRIMARY CARE P,. [Primary Care Provider] - As per Instructions Prescriptions: Ondansetron HCl [Zofran] 4 mg PO Q4-6PRN PRN #10 tablet PRN Reason: Nausea/Vomiting, Use 1st
[2017-05-15] MEDS ORDERED: HYDROmorphONE/DILAUDID 1 MG/ML SYR IVP ONE (20:44)
[2017-05-15] MEDS ORDERED: ONDANSETRON 4 MG/2 ML VIAL IVP ONE (20:44)
[2017-05-15] MEDS ORDERED: NS 1,000 ML IV ONE (20:44)
[2017-05-15 21:09] LABS: % IMMATURE GRANULYOCYTES 0.6 % (0.0-1.1); ABSOLUTE IMMATURE GRANULOCYTES 0.11 10^3/uL (0.00-0.10); ADD DIFF? NO; ADD MORPH? NO; ADD SCAN? NO; ATYPICAL LYMPHOCYTE FLAG 10 (0-99); FRAGMENT RBC FLAG 0 (0-99); HEMATOCRIT 39.4 % (40.0-51.0); HEMOGLOBIN 13.4 g/dL (13.7-17.5); LEFT SHIFT FLG 0 (0-99); LIPEMIA HEMOLYSIS FLAG 90 (0-99); MEAN CELL VOLUME 88.3 fL (81.5-99.8); PLATELET CLUMPS FLAG 0 (0-99); PLATELET COUNT 372 10^3/uL (150-400); RED BLOOD CELL COUNT 4.46 10^6/uL (4.40-6.38); RED CELL DISTRIBUTION WIDTH 13.1 % (11.5-15.2)
[2017-05-15 21:22] LABS: ALANINE AMINOTRANSFERASE 27 IU/L (21-72); ALBUMIN 3.5 g/dL (3.5-5.0); ALKALINE PHOSPHATASE 121 IU/L (38-126); ANION GAP 16 mEq/L (8-16); ASPARTATE AMINOTRANSFERASE 19 IU/L (17-59); BILIRUBIN,TOTAL 0.9 mg/dL (0.1-1.4); BILIRUBIN-CONJUGATED 0.5 mg/dL (0.0-0.5); BILIRUBIN-UNCONJUGATED 0.4 mg/dL (0.0-1.1); CARBON DIOXIDE 19 mEq/l (22-31); CHLORIDE 100 mEq/L (97-110); CREATININE 0.8 mg/dL (0.7-1.3); GLOMERULAR FILTRATION RATE > 60; GLUCOSE 127 mg/dL (70-100); POTASSIUM 4.1 mEq/L (3.5-5.2); SODIUM 135 mEq/L (134-144); TOTAL PROTEIN 7.6 g/dL (6.3-8.2)
[2017-05-15 21:23] VITALS: TEMP 97.9
[2017-05-15] MEDS ORDERED: ONDANSETRON 4MG PREPACK#2 BTL TAKEHOME ONE (21:53)
[2017-05-15 21:57] VITALS: BP 104/56; PULSE 100; RESP 15; O2SAT 94
== END 2017-05-15 22:16 | disposition home or self-care (01) ==
DX: R11.2 Nausea with vomiting, unspecified (principal); E86.9 Volume depletion, unspecified; F17.200 Nicotine dependence, unspecified, uncomplicated
CPT/HCPCS: 96374; J1170; J2405

== ENCOUNTER 2017-05-16 12:08 | Inpatient (IN) | payer MEDICAID ==
[2017-05-16] MEDS ORDERED: ONDANSETRON 4 MG/2 ML VIAL IVP ONE (12:36)
[2017-05-16] MEDS ORDERED: ONDANSETRON 4 MG/2 ML VIAL ONE (12:40)
[2017-05-16] MEDS ORDERED: NS 1,000 ML IV ONE ×3 (13:09→14:48)
[2017-05-16] MEDS ORDERED: HALOPERIDOL LACT 5 MG/ML INJ IVP ONE (13:10)
--- NOTE | 2017-05-16 13:18 | EDPHY ---
H & P Stated Complaint: continued epigastric pain /vomit since visit here same 05/12 Time Seen by Provider: 05/16/17 12:55 HPI/ROS: Chief Complaint: Nausea vomiting HPI: 41-year-old male presenting with uncontrolled nausea and vomiting. Patient was seen emergency department 3 days ago and noted to have ST elevations on his ECG with associated chest pain. Was taken to the slab tripper in noted have normal coronary arteries. He was diagnosed with pericarditis and sent home on colchicine and NSAIDs. Patient has since had uncontrolled nausea and vomiting been unable to keep anything down. He was seen in the emergency department yesterday and given fluids and antiemetics with good success. He was sent home with Zofran which has been taking but is continuing to a not tolerate p.o.. Denies any fevers or chills. Has had no further significant chest pain but some epigastric pain with vomiting. No hematemesis. No blood or melena. No shortness of breath. ROS: 10 point Review of Systems is negative except as noted in the HPI. PMH: Pericarditis Medications: Colchicine and NSAIDs Allergies: No known drug allergies Social History: Positive smoking, no alcohol, 1-1.5 g of marijuana daily Family History: non-contributory Physical Exam: Gen: Awake, Alert, No Distress HEENT: Nose: no rhinorrhea Eyes: PERRLA, EOMI Mouth: Moist mucosa Neck: Supple, no JVD Chest: nontender, lungs clear to auscultation Heart: S1, S2 normal, no murmur Abd: Soft, diffuse tenderness, no guarding Back: no CVA tenderness, no midline tenderness Ext: no edema, non-tender Skin: no rash Neuro: CN II-XII intact, Sensation grossly intact, Strength 5/5 in bilateral upper and lower extremities - Personal History Current Tetanus/Diphtheria Vaccine: Unsure Current Tetanus Diphtheria and Acellular Pertussis (TDAP): Unsure - Medical/Surgical History Hx Asthma: No Hx Chronic Respiratory Disease: No Hx Diabetes: No Hx Cardiac Disease: No Hx Renal Disease: No Hx Cirrhosis: No Hx Alcoholism: No Hx HIV/AIDS: No Hx Splenectomy or Spleen Trauma: No Other PMH: Pneumonia 2014. gout. pericarditis dx 05/15/17 - Social History Smoking Status: Current every day smoker Constitutional: Initial Vital Signs Temperature (C) 36.8 C 05/16/17 12:30 Heart Rate 126 H 05/16/17 12:30 Respiratory Rate 18 05/16/17 12:30 Blood Pressure 139/110 H 05/16/17 12:30 O2 Sat (%) 96 05/16/17 12:30 O2 Delivery Mode Nasal Cannula O2 (L/minute) 3 Allergies/Adverse Reactions: No Known Allergies Allergy (Verified 05/13/17 04:04) Home Medications: Medication Instructions Recorded Colchicine [Colchicine (*)] 0.6 mg PO BID #60 ea 05/13/17 Ibuprofen [Motrin (*)] 600 mg PO Q8HRS #30 tab 05/13/17 Ondansetron HCl [Zofran] 4 mg PO Q4-6PRN PRN #10 tablet 05/15/17 Medical Decision Making - Diagnostics EKG Interpretation: ECG time 2:27 p.m. sinus tachycardia with a rate of 127. There is ST elevations in leads 1 to AVF V3 through V6 with depressions in AVR and V1. These are actually improved compared to his ECG from 13 May 2017. Consistent with pericarditis. Imaging Results: Imaging Impressions Chest X-Ray 05/16/17 13:41 Impression: 1. Persistent right upper lobe consolidation suggesting pneumonia. Radiographic follow up is recommended to resolution. 2. Streaky indeterminate left basilar opacities, which could represent pneumonia or atelectasis. 3. Probable trace effusions. Abdomen CT 05/16/17 14:22 Impression: 1. Large pericardial effusion with minimal pericardial enhancement, which could be related to pericarditis. 2. Diffuse heterogeneous liver enhancement, which could be related to passive hepatic congestion. 3. Pericholecystic fluid in the setting of ascites, which could be related to hypoproteinemia, the ascites, or less likely cholecystitis. Clinical correlation is recommended. 4. Indeterminate hypodensity in the left kidney. This could represent a complex cyst; however, ultrasound is recommended to exclude a solid mass. 5. Indeterminate sclerosis in the right femur. Dedicated plain films of the femur are recommended. Findings discussed with Hakeem Braun MD, 05/16/2017, at 1546 hours. ED Course/Re-evaluation: 41-year-old male with pericarditis presenting with uncontrolled nausea and vomiting. Patient is tachycardic to the 120s. He also has a leukocytosis of 19 which makes him positive for SIRS criteria. Has started down the sepsis pathway and have ordered initial lactic acid. Patient has already had 1 L fluid in the 2nd L is hanging. Hospitalist has been paged. [id number] lactic acid is 2.8, patient meets sepsis criteria. With severe sepsis has been documented at this time. Patient has received 2 L of fluid. Will continue with hydration and recheck lactate. Hospitalist has been consulted. I spoke with Dr. Flores. Will be admitted to Dr. Villalobos. CT scan is consistent with fluid overload secondary to pericarditis with a large pericardial effusion. No other intra-abdominal findings. Patient's repeat lactate is down to 1.5 after hydration. His heart rate is improved as well. No significant shortness of breath at this time. Patient be admitted to the PCU under . - Data Points Laboratory Results: Laboratory Results 05/16/17 12:25 05/16/17 12:25 05/16/17 05/16/17 05/16/17 15:17 14:03 12:25 WBC RBC Hgb Hct MCV MCH MCHC RDW Plt Count MPV Neut % (Auto) Lymph % (Auto) [place] % (Auto) Eos % (Auto) Baso % (Auto) Nucleat RBC Rel Count Absolute Neuts (auto) Absolute Lymphs (auto) Absolute Monos (auto) Absolute Eos (auto) Absolute Basos (auto) Absolute Nucleated RBC Immature Gran % Immature Gran # PT INR APTT VBG Lactic Acid 1.5 mmol/L mmol/L 2.8 mmol/L H mmol/L (0.7-2.1) (0.7-2.1) Sodium Potassium Chloride Carbon Dioxide Anion Gap BUN Creatinine Estimated GFR Glucose Calcium Total Bilirubin Conjugated Bilirubin Unconjugated Bilirubin AST ALT Alkaline Phosphatase Troponin I < 0.012 ng/mL ng/mL (0-0.034) Total Protein Albumin Lipase 05/16/17 05/16/17 05/16/17 12:25 12:25 12:25 WBC 19.00 10^3/uL H 10^3/uL (3.80-9.50) RBC 4.11 10^6/uL L 10^6/uL (4.40-6.38) Hgb 12.5 g/dL L g/dL (13.7-17.5) Hct 36.5 % L % (40.0-51.0) MCV 88.8 fL fL (81.5-99.8) MCH 30.4 pg pg (27.9-34.1) MCHC 34.2 g/dL g/dL (32.4-36.7) RDW 13.0 % % (11.5-15.2) Plt Count 396 10^3/uL 10^3/uL (150-400) MPV 9.9 fL fL (8.7-11.7) Neut % (Auto) 85.2 % H % (39.3-74.2) Lymph % (Auto) 4.9 % L % (15.0-45.0) [place] % (Auto) 8.9 % % (4.5-13.0) Eos % (Auto) 0.0 % L % (0.6-7.6) Baso % (Auto) 0.2 % L % (0.3-1.7) Nucleat RBC Rel Count 0.0 % % (0.0-0.2) Absolute Neuts (auto) 16.17 10^3/uL H 10^3/uL (1.70-6.50) Absolute Lymphs (auto) 0.94 10^3/uL L 10^3/uL (1.00-3.00) Absolute Monos (auto) 1.69 10^3/uL H 10^3/uL (0.30-0.80) Absolute Eos (auto) 0.00 10^3/uL L 10^3/uL (0.03-0.40) Absolute Basos (auto) 0.04 10^3/uL 10^3/uL (0.02-0.10) Absolute Nucleated RBC 0.00 10^3/uL 10^3/uL (0-0.01) Immature Gran % 0.8 % % (0.0-1.1) Immature Gran # 0.16 10^3/uL H 10^3/uL (0.00-0.10) PT 13.6 SEC SEC (12.0-15.0) INR 1.05 (0.83-1.16) APTT 30.2 SEC SEC (23.0-38.0) VBG Lactic Acid Sodium 133 mEq/L L mEq/L (134-144) Potassium 4.5 mEq/L mEq/L (3.5-5.2) Chloride 100 mEq/L mEq/L (97-110) Carbon Dioxide 18 mEq/l L mEq/l (22-31) Anion Gap 15 mEq/L mEq/L (8-16) BUN 12 mg/dL mg/dL (7-23) Creatinine 0.8 mg/dL mg/dL (0.7-1.3) Estimated GFR > 60 Glucose 166 mg/dL H mg/dL (70-100) Calcium 8.9 mg/dL mg/dL (8.5-10.4) Total Bilirubin 0.7 mg/dL mg/dL (0.1-1.4) Conjugated Bilirubin 0.5 mg/dL mg/dL (0.0-0.5) Unconjugated Bilirubin 0.2 mg/dL mg/dL (0.0-1.1) AST 21 IU/L IU/L (17-59) ALT 25 IU/L IU/L (21-72) Alkaline Phosphatase 101 IU/L IU/L (38-126) Troponin I Total Protein 7.1 g/dL g/dL (6.3-8.2) Albumin 3.1 g/dL L g/dL (3.5-5.0) Lipase 10.0 IU/L L IU/L (23-300) Medications Given: Discontinued Medications Acetaminophen (Tylenol) 1,000 mg PO EDNOW ONE Stop: 05/16/17 13:52 Last Admin: 05/16/17 14:01 Dose: 1,000 mg Haloperidol Lactate (Haldol Injection) 2.5 mg IVP EDNOW ONE Stop: 05/16/17 13:11 Last Admin: 05/16/17 13:17 Dose: 2.5 mg Sodium Chloride (Ns) 1,000 mls @ 0 mls/hr IV ONCE ONE PRN Reason: Wide Open Stop: 05/16/17 13:10 Last Admin: 05/16/17 13:16 Dose: 1,000 mls Sodium Chloride (Ns) 1,000 mls @ 0 mls/hr IV EDNOW ONE; Wide Open PRN Reason: Protocol Stop: 05/16/17 14:48 Last Admin: 05/16/17 14:49 Dose: 1,000 mls Sodium Chloride (Ns) 1,000 mls @ 0 mls/hr IV EDNOW ONE; Wide Open PRN Reason: Protocol Stop: 05/16/17 14:49 Last Admin: 05/16/17 13:49 Dose: 1,000 mls Ondansetron HCl (Zofran) 4 mg IVP EDNOW ONE Stop: 05/16/17 12:37 Last Admin: 05/16/17 12:41 Dose: 4 mg Departure - Departure Disposition: [facility] Inpatient Acute Clinical Impression: Pericarditis Condition: Fair Referrals: NONE *PRIMARY CARE P,. [Primary Care Provider] - As per Instructions
[2017-05-16 13:21] LABS: % IMMATURE GRANULYOCYTES 0.8 % (0.0-1.1); ABSOLUTE IMMATURE GRANULOCYTES 0.16 10^3/uL (0.00-0.10); ADD DIFF? NO; ADD MORPH? NO; ADD SCAN? NO; ATYPICAL LYMPHOCYTE FLAG 10 (0-99); FRAGMENT RBC FLAG 0 (0-99); HEMATOCRIT 36.5 % (40.0-51.0); HEMOGLOBIN 12.5 g/dL (13.7-17.5); LEFT SHIFT FLG 10 (0-99); LIPEMIA HEMOLYSIS FLAG 90 (0-99); MEAN CELL HEMOGLOBIN 30.4 pg (27.9-34.1); MEAN CELL HEMOGLOBIN CONCENTR. 34.2 g/dL (32.4-36.7); MEAN CELL VOLUME 88.8 fL (81.5-99.8); MEAN PLATELET VOLUME 9.9 fL (8.7-11.7); PLATELET CLUMPS FLAG 0 (0-99); PLATELET COUNT 396 10^3/uL (150-400); RED BLOOD CELL COUNT 4.11 10^6/uL (4.40-6.38)
[2017-05-16 13:28] LABS: ALANINE AMINOTRANSFERASE 25 IU/L (21-72); ALBUMIN 3.1 g/dL (3.5-5.0); ALKALINE PHOSPHATASE 101 IU/L (38-126); ANION GAP 15 mEq/L (8-16); ASPARTATE AMINOTRANSFERASE 21 IU/L (17-59); BILIRUBIN,TOTAL 0.7 mg/dL (0.1-1.4); BILIRUBIN-CONJUGATED 0.5 mg/dL (0.0-0.5); BILIRUBIN-UNCONJUGATED 0.2 mg/dL (0.0-1.1); CALCIUM 8.9 mg/dL (8.5-10.4); CARBON DIOXIDE 18 mEq/l (22-31); CHLORIDE 100 mEq/L (97-110); CREATININE 0.8 mg/dL (0.7-1.3); GLOMERULAR FILTRATION RATE > 60; GLUCOSE 166 mg/dL (70-100); POTASSIUM 4.5 mEq/L (3.5-5.2); SODIUM 133 mEq/L (134-144); TOTAL PROTEIN 7.1 g/dL (6.3-8.2)
[2017-05-16] MEDS ORDERED: ACETAMINOPHEN 500 MG TAB ONE (13:51)
[2017-05-16] MEDS ORDERED: ACETAMINOPHEN 500 MG TAB PO ONE (13:51)
[2017-05-16 13:54] LABS: INR 1.05 (0.83-1.16); PROTIME(PATIENT) 13.6 SEC (12.0-15.0)
[2017-05-16 13:55] LABS: APTT 30.2 SEC (23.0-38.0)
--- NOTE | 2017-05-16 14:29 | CPEKG ---
Heart Rate: 127 RR Interval: 472 P-R Interval: 160 QRSD Interval: 68 QT Interval: 292 QTC Interval: 425 P Theresa: 66 QRS Theresa: 45 T Wave Theresa: 43 EKG Severity - ABNORMAL ECG - EKG Impression: SINUS TACHYCARDIA EKG Impression: INFERIOR INJURY, PROBABLE EARLY ACUTE INFARCT EKG Impression: LATERAL LEADS ARE ALSO INVOLVED EKG Impression: BORDERLINE ST ELEVATION, ANTERIOR LEADS Electronically Signed By: Hakeem Braun 16-May-2017 20:31:21
[2017-05-16] MEDS ORDERED: IOPAMIDOL (ISOVUE-300) 100 ML BTL ONE (15:09)
[2017-05-16 15:11] LABS: LACGHOST ORDER
[2017-05-16] MEDS ORDERED: ONDANSETRON 4 MG/2 ML VIAL IVP PRN (15:58)
[2017-05-16] MEDS ORDERED: ACETAMINOPHEN 325 MG TAB PO PRN (15:58)
[2017-05-16] MEDS ORDERED: PROMETHAZINE HCL 25 MG/ML INJ IVP PRN (15:58)
[2017-05-16] MEDS ORDERED: HYDROmorphONE/DILAUDID 1 MG/ML SYR IVP PRN (15:58)
[2017-05-16] MEDS ORDERED: NS 1,000 ML IV SCH (16:00)
[2017-05-16] MEDS: ERTAPENEM 1 GM in NS 100 ML IV SCH (17:02)
--- NOTE | 2017-05-16 18:05 | GHP ---
[f rep st] HISTORY AND PHYSICAL DATE OF ADMISSION: 05/16/2017 CHIEF COMPLAINT: Nausea and vomiting. HISTORY: The patient is a 41-year-old male who has arrived to the emergency room for the third time in 3 days. Three days ago, he presented with severe left-sided chest pain. An EKG showed diffuse ST elevations. He went to the cardiac catheterization lab which showed normal coronaries. He was d iagnosed with pericarditis, discharged on colchicine and NSAIDs. He re-presented to the emergency r oom yesterday with uncontrolled nausea and vomiting and was discharged with some Zofran. He now re- presents to the hospital yet again with ongoing severe intractable nausea and vomiting. His chest p ain continues unchanged and has not improved. He denies any abdominal pain. He has had a new produ ctive cough for the last couple of days. He has had diaphoresis. PAST MEDICAL HISTORY: Negative. MEDICATIONS: None. ALLERGIES: No known drug allergies. SOCIAL HISTORY: He does smoke cigarettes but is cutting back and currently only 1 cigarette per day . He is a daily marijuana user for many years, 1 g per day. Never used IV drugs. Occasional alcoh ol. 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 Originally from [place]. Lives with 3 roommates. REVIEW OF SYSTEMS: Complete review of systems obtained. Review of systems is negative regarding co nstitutional, HEENT, GI, pulmonary, cardiovascular, , hematology, skin, musculoskeletal, endocrine and psych. Pertinent positives and negatives as in HPI. FAMILY HISTORY: His mother of cancer at age 49. PHYSICAL EXAMINATION: GENERAL: Well-developed, well-nourished male, in no acute distress. VITAL S IGNS: Temperature is 37.3, pulse 129, blood pressure 117/87, saturating 93% on 3 L. EYE: Normal c onjunctivae. Pupils round and reactive to light. ENT: Normal ears and nose. Hearing intact. Nor mal teeth. Oropharynx moist. NECK: Trachea midline. No thyromegaly. CHEST: Normal respiratory effort. LUNGS: Clear to auscultation bilaterally. CARDIOVASCULAR: Tachycardic. No murmur. No e xtremity edema. ABDOMEN: Soft, nontender. No hepatosplenomegaly. SKIN: Warm, dry, intact. No r chayo. MUSCULOSKELETAL: No cyanosis or clubbing. Strength 5/5 upper and lower extremities. NEUROLO GIC: Cranial nerves intact. Normal sensation to light touch. PSYCHIATRIC: Alert and oriented x3. Normal mood and affect. Normal judgment and insight. Normal memory. LABORATORY DATA: White count 19, hematocrit 36.5, platelets 396. Sodium 133, potassium 4.5, chlori de 100, bicarb 18, BUN 12, creatinine 0.8, glucose 166. LFTs are negative. Troponins negative. IN R is 1.05. Lactate is 2.8. EKG reviewed by me, my personal interpretation, diffuse ST elevation. Chest x-ray shows possible right upper lobe pneumonia. Medical records have been reviewed. All records from the last couple of stays including cardiology consultation and ER visits. ASSESSMENT/PLAN: 1. Acute pericarditis with moderate effusion. I performed a stat echocardiogram in the emergency r oom and there was no tamponade. We will follow serial echos. I have spoke with Dr. Contreras of [facility]. They will see him in consultation in the morning. Continue his colchicine and NSAID therapy . 2. Sepsis. I suspect he has aspiration pneumonia. Will start IV Invanz and follow serial lactates . 3. Intractable nausea and vomiting. I have just received a preliminary report regarding his CT sca n of the abdomen and pelvis. It appears he has edema in his abdomen due to his pericarditis and sub sequent congestion. 4. Daily marijuana user. Given that we have alternative explanation for his nausea and vomiting, I do not think this is contributing. CODE STATUS: Full. ADMISSION STATUS: 1. Will admit to inpatient as he is medically complex. Anticipate 2 midnights. 2. Critical care time spent is 45 minutes. He is tachycardic and septic coming out of the ER, requ iring stat bedside therapy which I have facilitated and coordinated as discussed above. 3. DVT prophylaxis. He is relatively low risk. We will hold off at this time as I do not want hem orrhagic conversion of his pericardial effusion and he may need some type of procedure. /[id number]/MODL
[2017-05-16 19:07] LABS: COLOR AMBER; LEUKOCYTE ESTERASE,URINE NEGATIVE (NEGATIVE); NITRITE,URINE NEGATIVE (NEGATIVE)
[2017-05-16 19:17] LABS: MUCUS TRACE /lpf (NONE-1+); RBC,URINE 25-50 /hpf (0-3)
[2017-05-16] MEDS: KETOROLAC 15 MG/1 ML SDV IVP PRN (20:23)
[2017-05-16] MEDS: COLCHICINE 0.6 MG CAP/TAB PO SCH (20:23)
[2017-05-17] MEDS: oxyCODONE IR 5 MG TAB PO PRN ×2 (02:27→19:16)
[2017-05-17 04:37] LABS: % IMMATURE GRANULYOCYTES 0.8 % (0.0-1.1); ABSOLUTE IMMATURE GRANULOCYTES 0.13 10^3/uL (0.00-0.10); ADD DIFF? NO; ADD MORPH? NO; ADD SCAN? NO; ATYPICAL LYMPHOCYTE FLAG 0 (0-99); FRAGMENT RBC FLAG 0 (0-99); HEMOGLOBIN 11.2 g/dL (13.7-17.5); LEFT SHIFT FLG 10 (0-99); LIPEMIA HEMOLYSIS FLAG 90 (0-99); MEAN CELL HEMOGLOBIN 30.4 pg (27.9-34.1); MEAN CELL HEMOGLOBIN CONCENTR. 33.9 g/dL (32.4-36.7); MEAN CELL VOLUME 89.4 fL (81.5-99.8); PLATELET CLUMPS FLAG 10 (0-99); PLATELET COUNT 313 10^3/uL (150-400); RED BLOOD CELL COUNT 3.69 10^6/uL (4.40-6.38); RED CELL DISTRIBUTION WIDTH 13.2 % (11.5-15.2)
[2017-05-17 04:55] LABS: ANION GAP 10 mEq/L (8-16); CALCIUM 8.2 mg/dL (8.5-10.4); CARBON DIOXIDE 21 mEq/l (22-31); CHLORIDE 102 mEq/L (97-110); CREATININE 0.7 mg/dL (0.7-1.3); GLOMERULAR FILTRATION RATE > 60; GLUCOSE 104 mg/dL (70-100); POTASSIUM 4.4 mEq/L (3.5-5.2); SODIUM 133 mEq/L (134-144)
--- NOTE | 2017-05-17 06:07 | CPEKG ---
Heart Rate: 105 RR Interval: 571 P-R Interval: 172 QRSD Interval: 74 QT Interval: 328 QTC Interval: 434 P [place]: 73 QRS [place]: 43 T Wave [place]: 51 EKG Severity - ABNORMAL ECG - EKG Impression: SINUS TACHYCARDIA EKG Impression: INFERIOR INJURY, PROBABLE EARLY ACUTE INFARCT EKG Impression: LATERAL LEADS ARE ALSO INVOLVED EKG Impression: ST ELEVATION, CONSIDER ANTERIOR INJURY Electronically Signed By: Moshe Duran 17-May-2017 21:28:47
[2017-05-17] MEDS: COLCHICINE 0.6 MG CAP/TAB PO SCH ×2 (08:37→20:57)
[2017-05-17] MEDS: ERTAPENEM 1 GM in NS 100 ML IV SCH (08:37)
--- NOTE | 2017-05-17 08:53 | ECHO ---
[id number] + + [address] : : [facility] [address] : : [phone] + Adult Echocardiographic Report + ----+ :Name: ETHAN COLLIER LStudy Date: 05/16/2017 02:45 PM BP: 126/95 mmHg : : Hospital Admission Number: [id number] Location : ER: :: 1975 Gender: Male Height: 67 in : :Age: 41 yrs Race: WH Weight: 142 lb : :Reason For Study: r/o tamponade : : BSA: 1.7 meters2 : :History: pericarditis : + ----+ Left Ventricle The left ventricle is normal in size and function. Right Ventricle The right ventricle is normal size. Pericardium/Pleural Moderate size pericardial effusion. There is minimal respiratory variation with the MV and TV inflow patterns. Right atrial collapse is noted. RV diastolic collapse is not evident. IVC is dilated without inspiratory collapse. Conclusion Limited echocardiogram to rule out tamponade. Heart rate 119bpm. The left ventricle is normal in size and function. Moderate size pericardial effusion. There is minimal respiratory variation with the MV and TV inflow patterns. Right atrial collapse is noted. RV diastolic collapse is not evident. IVC is dilated without inspiratory collapse. Since previous echocardiogram the trivial pericardial effusion noted on is now at least moderate in size. Final Reading Physician: Radha Delcid signed on 05/17/2017 08:52 AM Ordering Physician: Isabella Villalobos Performed By: Jessica Azevedo
[2017-05-17] MEDS ORDERED: fentaNYL 100 MCG/2 ML INJ ONE (11:28)
[2017-05-17] MEDS ORDERED: MIDAZOLAM 2 MG/2 ML VIAL ONE ×2 (11:28)
[2017-05-17] MEDS ORDERED: LIDOCAINE 1% 300 MG/30 ML SDV ONE (11:56)
--- NOTE | 2017-05-17 12:44 | SOAPPROG ---
RYAN Progress Note Assessment/Plan: 1. Pericarditis - Pt was diagnosed with pericarditis on 05/13/17. He was started on motrin and colchicine. His chest pain has improved with therapy. --> Continue colchicine and motrin. 2. Pericardial effusion - Pt was found to have a moderate pericardial effusion on admission. This represents a significant increase from his echocardiogram on 05/13/17. There was no echocardiographic evidence of tamponade physiology, however, patient has become tachycardiac and acidotic. Discussed risks and benefits of pericardiocentesis with patient. Will arrange to have this performed. Subjective: Patient is a 41-year-old gentleman with a recent diagnosis of pericarditis who presents to the hospital on 05/16/2017 with intractable nausea and vomiting. He had an echocardiogram performed demonstrating a moderate pericardial effusion without tamponade physiology. Since this time he has become acidotic anti tachycardic raising concern for early tamponade. We have been asked to help in the further management of this patient. Patient has been taking his colchicine and Motrin. He reports symptoms of chest pain have improved. Objective: Vital Signs Temp Pulse Resp BP Pulse Ox 37.3 C 109 H 24 H 117/84 H 91 L 05/17/17 07:35 05/17/17 07:35 05/17/17 07:35 05/17/17 07:35 05/17/17 07:35 Laboratory Results 05/17/17 04:25 05/17/17 04:25 05/16/17 05/17/17 05/18/17 05:59 05:59 05:59 Intake Total 3300 540 Output Total 650 200 Balance 2650 340 PT 13.6 SEC (12.0-15.0) 05/16/17 12:25 INR 1.05 (0.83-1.16) 05/16/17 12:25 Physical Exam - Physical Exam General Appearance: alert, mild distress Respiratory: lungs clear Cardiac/Chest: tachycardia Abdomen: normal bowel sounds, non-tender, soft Extremities: No pedal edema Neuro/Psych: alert, oriented x 3 ICD10 Worksheet Patient Problems: Problems Problem Status Onset Pericarditis Acute Chest pain Acute
[2017-05-17] MEDS: KETOROLAC 15 MG/1 ML SDV IVP PRN ×2 (13:07→19:13)
--- NOTE | 2017-05-17 15:07 | HOSPPROG ---
Hospitalist Progress Note Assessment/Plan: * Acute pericarditis with rapidly increasing pericardial effusion -s/p pericardiocentesis - now with pericardial drain -continue colchicine * Sepsis - possible aspiration PNA -IV Invanz * Acute respiratory failure - now 10L -check STAT cxr * Hepatic congestion/ascites - with intractable N/V -should improve now * Daily THC user Subjective: Very thirsty while NPO Objective: Vital Signs Temp Pulse Resp BP Pulse Ox 37.1 C 113 H 14 128/100 H 94 05/17/17 14:00 05/17/17 14:00 05/17/17 14:00 05/17/17 14:00 05/17/17 14:00 Laboratory Results 05/17/17 04:25 05/17/17 04:25 05/16/17 05/17/17 05/18/17 05:59 05:59 05:59 Intake Total 3300 540 Output Total 650 200 Balance 2650 340 PT 13.6 SEC (12.0-15.0) 05/16/17 12:25 INR 1.05 (0.83-1.16) 05/16/17 12:25 d/w Dr. Patricio - proceed with pericardiocentesis EKG viewed, my personal interpretation is - slowly resolving ST depression - Physical Exam Constitutional: no apparent distress, appears nourished, not in pain Cardiovascular: regular rate and rhythym, no murmur, rub, or gallop Respiratory: no respiratory distress, no rales or rhonchi, clear to auscultation Gastrointestinal: normoactive bowel sounds, soft, non-tender abdomen, no palpable masses Skin: no rashes or abrasions, no fluctuance, no induration Neurologic: AAOx3, sensation intact bilaterally Psychiatric: interacting appropriately, not anxious, not encephalopathic, thought process linear ICD10 Worksheet Patient Problems: Problems Problem Status Onset Pericarditis Acute Chest pain Acute
[2017-05-17] MEDS ORDERED: NS 1,000 ML IV SCH (15:15)
[2017-05-17] MEDS ORDERED: VANCOMYCIN HCL/NORMAL SALINE 250 ML IV ONE (15:39)
--- NOTE | 2017-05-17 16:21 | GCON ---
[f rep st] CONSULTATION PULMONARY/CRITICAL CARE CONSULTATION DATE OF CONSULTATION: 05/17/2017 REFERRING PHYSICIAN: Isabella Villalobos MD REASON FOR CONSULTATION: Evaluation and management of chest pain and pericarditis. HISTORY: This patient is a 41-year-old male who was seen in the emergency department 4 days ago aft er presenting with left-sided chest pain. He had diffuse ST elevations and went to the cardiac cath lab tech, which showed normal coronary. He was diagnosed with pericarditis and discharged on colchicine and NSAIDs. Since then, he has had severe nausea and vomiting, which prompted his admission last n ight. His chest pain persisted. An echocardiogram was done and demonstrated a moderate-sized peric ardial effusion with no signs of tamponade. However, due to some acidosis as well as tachycardia in the absence of hypotension, it was felt that the patient may have some tamponade and so he was take n to the cath lab tech today, where a pericardiocentesis was performed with drainage of 450 mL of fluid. The patient reports that his nausea and vomiting have now resolved. He feels a bit drowsy since th e procedure, during which he received fentanyl. His chest pain is fairly well controlled. PAST MEDICAL HISTORY: None. MEDICATIONS: None. ALLERGIES: None. SOCIAL HISTORY: The patient is a smoker, both tobacco and marijuana. He drinks alcohol just occasi onally. 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 FAMILY HISTORY: Positive for cancer in his mother. REVIEW OF SYSTEMS: A 10-point review of systems adds nothing to the history of present illness. PHYSICAL EXAMINATION: GENERAL: The patient is awake, alert, and in no acute distress. VITAL SIGNS : Blood pressure is 128/100 with a heart rate of 111. His oxygen saturations are 94% on nasal abel padilla oxygen. HEENT: Normocephalic and atraumatic. No icterus. NECK: No adenopathy. Trachea is m idline. CHEST: Clear to auscultation. CARDIAC: He has a soft 1 component rub with regular tachyc ardia. No murmur. ABDOMEN: Soft, nontender. Bowel sounds are present. EXTREMITIES: No clubbing , cyanosis, or edema. NEURO: The patient is alert and oriented. He has no gross motor or sensory deficits. LABORATORY: White blood count is 16.8 down from 19.0, hemoglobin is 11.2 down from 12.5. A development chemist ry group is remarkable only for a carbon dioxide level of 21 with an anion gap of 10. Glucose is 10 4. TSH is 0.9. Venous lactate is 1.1 down from 2.8 yesterday. IMAGING: A chest x-ray shows some right upper lobe infiltrate and possible trace pleural effusions. Images reviewed. Echocardiogram shows moderate pericardial effusion with minimal respiratory vari ation in the inflow patterns. ASSESSMENT: 1. Acute pericarditis. This is likely the cause of the patient's pain as well as effusion. He is currently being treated with Toradol and colchicine. 2. Pericardial effusion. This did not have tamponade physiology on echocardiogram, but after drain age of a large volume of fluid, the patient has decrease in his heart rate which has reached as high as the 140s. 3. Also, his nausea and vomiting have resolved. RECOMMENDATIONS: 1. Continue drainage of pericardial fluid. 2. Continue Toradol and colchicine for pericarditis. 3. Zofran will be used for nausea. 4. Oxycodone or IV Dilaudid will be used, as the patient has pain that is refractory to NSAIDs and acetaminophen. 5. The patient has already received over 3 L of fluid, so the patient will be started on p.o. and n o further IV fluids will be given, unless the patient develops hypotension. /[id number]/MODL
--- NOTE | 2017-05-17 18:31 | CPIP ---
[f rep st] INVASIVE CARDIAC PROCEDURE DATE OF PROCEDURE: 05/17/2017 PROCEDURE: Pericardiocentesis. INDICATION: Moderate pericardial effusion with early signs of tamponade physiology. SPECIFICS: 1. Patient was prepped and draped in sterile fashion. 2. 1% lidocaine was used to anesthetize the subxiphoid process. 3. The percutaneous needle was advanced into the pericardial space under echocardiographic guidance . 4. Agitated saline contrast was used to verify entry into the pericardial space. 5. Guidewire was then advanced into the pericardial space followed by the pericardial drain. 6. 400 cc of serosanguineous fluid withdrawn and sent to the lab for testing. CONSENT: Signed and in front of chart. ANESTHESIA: The patient was managed with conscious sedation. COMPLICATIONS: None. CONCLUSIONS: Status post pericardiocentesis. /[id number]/MODL
[2017-05-17] MEDS: NICOTINE 21 MG/24 HR PATCH TD SCH (21:57)
[2017-05-18] MEDS: KETOROLAC 15 MG/1 ML SDV IVP PRN ×2 (04:03→22:13)
[2017-05-18] MEDS: oxyCODONE IR 5 MG TAB PO PRN ×2 (04:03→22:13)
[2017-05-18 04:31] LABS: % IMMATURE GRANULYOCYTES 0.5 % (0.0-1.1); ABSOLUTE IMMATURE GRANULOCYTES 0.06 10^3/uL (0.00-0.10); ADD DIFF? NO; ADD MORPH? NO; ADD SCAN? NO; ATYPICAL LYMPHOCYTE FLAG 40 (0-99); FRAGMENT RBC FLAG 0 (0-99); HEMATOCRIT 36.8 % (40.0-51.0); HEMOGLOBIN 12.2 g/dL (13.7-17.5); LEFT SHIFT FLG 10 (0-99); LIPEMIA HEMOLYSIS FLAG 80 (0-99); MEAN CELL HEMOGLOBIN 30.3 pg (27.9-34.1); MEAN CELL HEMOGLOBIN CONCENTR. 33.2 g/dL (32.4-36.7); MEAN CELL VOLUME 91.5 fL (81.5-99.8); MEAN PLATELET VOLUME 9.1 fL (8.7-11.7); PLATELET CLUMPS FLAG 0 (0-99); PLATELET COUNT 312 10^3/uL (150-400); RED BLOOD CELL COUNT 4.02 10^6/uL (4.40-6.38); RED CELL DISTRIBUTION WIDTH 13.2 % (11.5-15.2)
[2017-05-18 04:52] LABS: ANION GAP 10 mEq/L (8-16); CALCIUM 8.1 mg/dL (8.5-10.4); CARBON DIOXIDE 26 mEq/l (22-31); CHLORIDE 101 mEq/L (97-110); CREATININE 0.5 mg/dL (0.7-1.3); GLOMERULAR FILTRATION RATE > 60; GLUCOSE 89 mg/dL (70-100); POTASSIUM 4.5 mEq/L (3.5-5.2); SODIUM 137 mEq/L (134-144)
[2017-05-18] MEDS ORDERED: VANCOMYCIN HCL/NORMAL SALINE 250 ML IV SCH (05:00)
[2017-05-18] MEDS: COLCHICINE 0.6 MG CAP/TAB PO SCH ×2 (08:44→22:13)
[2017-05-18] MEDS: ERTAPENEM 1 GM in NS 100 ML IV SCH (08:44)
[2017-05-18] MEDS: NICOTINE 21 MG/24 HR PATCH TD SCH (08:44)
--- NOTE | 2017-05-18 09:50 | ECHO ---
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 Large circumferential pericardial effusion noted. 400cc fluid removed from pericardial space. pericardial effusion Final Reading Physician: Radha Mello signed on 05/18/2017 09:49 AM Ordering Physician: Isabella Villalobos Performed By: Moshe Lau MD
--- NOTE | 2017-05-18 10:52 | HOSPPROG ---
Hospitalist Progress Note Assessment/Plan: * Acute pericarditis with rapidly increasing pericardial effusion, s/p pericardiocentesis - now with pericardial drain. Rpt echo this am still with small effusion. ?etiology: TSH nl, HIV neg, no h/o preceding viral symptoms. With GPC's on BCx, consider endocarditis. >16K wbc's on pericardial fluid, no orgs on gram stain. He is a smoker and has family h/o lung cancer. -continue colchicine, motrin for pain -follow drain output, Cx data -cards following -check drug screen, TORRES * Sepsis - BCx's with GPC's 1/2 bottles. Aspiration PNA considered initially, though CXR not super consistent with this. -Cont Invanz, IV Vanc added -ID consulted, ?need for ROBSON to r/o vegetation * Acute respiratory failure - O2 requirement improved from 10 LPM to 3 LPM -wean O2 as able * Hepatic congestion/ascites - with intractable N/V, improved. * Daily THC user -UDS as above * Full code * DVT PPLX - Pt relatively low risk. Lovenox deferred to minimize risk of hemorrhagic conversion of pericardial effusion. SCD's / ambulation ordered. * Dispo - cont inpt Subjective: Pt feels better, less pain. No fevers. Denies CP or SOB. Objective: Vital Signs Temp Pulse Resp BP Pulse Ox 36.8 C 83 17 117/85 H 94 05/18/17 09:00 05/18/17 10:00 05/18/17 10:00 05/18/17 10:00 05/18/17 10:00 Microbiology 05/17/17 Unknown Gram Stain - Final Pericardial Fluid - Aspirate Laboratory Results 05/18/17 04:00 05/18/17 04:00 05/17/17 05/18/17 05/19/17 05:59 05:59 05:59 Intake Total 3300 2439 Output Total 650 1750 Balance 2650 689 PT 13.6 SEC (12.0-15.0) 05/16/17 12:25 INR 1.05 (0.83-1.16) 05/16/17 12:25 - Physical Exam Constitutional: no apparent distress Eyes: PERRL Ears, Nose, Mouth, Throat: moist mucous membranes Cardiovascular: regular rate and rhythym, other (+friction rub) Respiratory: no respiratory distress Gastrointestinal: normoactive bowel sounds, soft, non-tender abdomen Skin: warm Musculoskeletal: full muscle strength Neurologic: AAOx3 Psychiatric: interacting appropriately ICD10 Worksheet Patient Problems: Problems Problem Status Onset Pericarditis Acute Chest pain Acute
--- NOTE | 2017-05-18 14:06 | PDINTPN ---
[facility] Progress Note Assessment/Plan: Assessment: 41-year-old admitted 05/16 with pericardial chest pain and ongoing nausea and vomiting. He had been in the emergency room in the days prior and diagnosed with pericarditis. Cardiac catheterization negative. Acute pericarditis. A bacterial etiology may be present based on the fluid characteristics. Started on Invanz yesterday, vancomycin today. Infectious Disease has consulted. Clinically improved, doing well. The drain remains in place with decreasing output. Cardiology following as well. Pulmonary infiltrates and effusions. Seen on x-ray and abdominal CT scan. Aspiration possible based on his history of nausea and vomiting, but x-ray not typical for this. Pulmonary status improved. Hypoxemia present on admission has significantly improved. Will follow x-ray. Consider CT scan of the chest if indicated. Sepsis. Possibly present on admission however hypotension from tamponade could give a similar picture. On broad-spectrum antibiotics. Blood pressure is fine. Lactates not significantly elevated. Tobacco abuse. Patient has been smoking for approximately 25 years. Now down to 1 cigarette per day. No known history of asthma or COPD. Clinically stable. DVT prophylaxis: SCDs currently. Pericardial drain a mild contraindication for Lovenox. GI prophylaxis: Eating. Plan: Continue care in the intensive care unit. Continue antibiotics. Follow pericardial output. Follow chest x-ray, laboratory. Continue pain control. 30 minutes of clinic time spent directly with the patient. Discussed with Infectious Disease, hospitalist, nursing, and the ICU multi disciplinary team. Subjective: Feeling better. Pericardial chest pain has significantly improved. Some still present. Denies significant shortness of breath. Objective: Vital Signs Temp Pulse Resp BP Pulse Ox 36.8 C 97 20 130/90 H 95 05/18/17 09:00 05/18/17 13:42 05/18/17 13:42 05/18/17 13:42 05/18/17 13:42 Microbiology 05/17/17 Unknown Gram Stain - Final Pericardial Fluid - Aspirate Laboratory Results 05/18/17 04:00 05/18/17 04:00 05/17/17 05/18/17 05/19/17 05:59 05:59 05:59 Intake Total 3300 2439 Output Total 650 1750 Balance 2650 689 PT 13.6 SEC (12.0-15.0) 05/16/17 12:25 INR 1.05 (0.83-1.16) 05/16/17 12:25 Laboratory Tests 05/17/17 05/17/17 13:43 Unknown Pericard WBC 19337 H Pericard RBC 6109 H Pericard Neutrophils 96 Pericard Total Protein 5.4 Pericardial LDH 6599 CXR: Yesterday. Bibasilar infiltrates/effusions, right greater than left. Right upper lobe infiltrate present as well. Repeat echo today shows only a small amount of residual pericardial fluid. Physical Exam - Physical Exam General Appearance: alert, thin, No no apparent distress EENT: PERRL/EOMI, other (Nasal cannula at 3 L) Neck: normal inspection (No JVD) Respiratory: lungs clear (Anteriorly), decreased breath sounds (At both bases), No rales, No rhonchi, No wheezing Cardiac/Chest: regular rate, rhythm, friction rub (Intermittent rub present), other (Pericardial drain in place. 400 mL out over 24 hours, 100 over the last 8) Abdomen: normal bowel sounds, non-tender, soft Skin: normal color, warm/dry Extremities: No pedal edema Neuro/Psych: no motor/sensory deficits, No cognition abnormalities ICD10 Worksheet Patient Problems: Problems Problem Status Onset Chest pain Acute Pericarditis Acute
[2017-05-18 15:17] LABS: PHENCYCLIDINE URINE BCH < 6 ng/ml (NEGATIVE); PHENCYCLIDINE URINE BCH NEGATIVE (NEGATIVE)
[2017-05-18 15:29] LABS: TETRAHYDROCANNABINOL URINE > 800 ng/mL (NEGATIVE)
--- NOTE | 2017-05-18 15:49 | GCON ---
[f rep st] CONSULTATION INFECTIOUS DISEASE CONSULTATION. DATE OF CONSULTATION: 05/18/2017 REASON FOR CONSULTATION: Possible bacteremia and pericarditis. PHYSICIAN REQUESTING CONSULTATION: Rita Nolasco. HPI: 41-year-old male with minimal past medical history whose problems date back to 05/13 when he woke up suddenly at 3 a.m. with sudden onset chest pain. He tried treating with [id number] GI medications without relief and called an ambulance and presented to the emergency room. Patient rapidly underwent a cardiac catheterization which showed clean coronaries. He also underwent an echocardiogram at that time, which showed trivial pericardial effusion and ejection fraction of 60%-65%, an aneurysmal atrial septum, trace MR , trace TR. Patient, based on diffuse ST elevation on EKG and chest pain, was diagnosed with pericarditis and discharged on NSAIDs and colchicine. The patient did fairly well as an outpatient until 05/16 again when he woke up with intractable nausea, vomiting. Patient returned to the emergency room where he underwent imaging which showed diffuse heterogeneous enhancement of his liver, gallbladder wall thickening and pericholecystic fluid and also underwent another echocardiogram which showed a significantly larger pericardial effusion with some early evidence of pericardial tamponade. Subsequently, patient underwent pericardial centesis with immediate return of 400 mL of serosanguineous fluid. A pericardial drain was left in place. Since that time, blood cultures, from admission grew 1 out of 2 positive cultures for GPCs. Further, patient was noted to have a mild leukocytosis with some bilateral infiltrates on chest x-ray and empirically initially started on ertapenem at time of admission on 05/16 with later vancomycin being added with blood culture results on 05/17. Other than the series of events described above, patient generally has had minimal complaints. He lives in an apartment with air conditioning and has 3 roommates who are well. He last saw a doctor in January for dehydration after he worked 90 hours in 1 week. He denies fevers, chills, night sweats, weight loss , changes in appetite except at time of onset of chest pain above. He reports that his symptoms improved after drainage of his pericardial fluid and has been eating fine since admission. He denies minimal respiratory symptoms but since admission has had a nonproductive cough. Patient came to [place] in 2014 after living approximately 1 year in [place]. He is originally from [place] and he grew up in a [place] environment. He does not eat raw fish, does not use hot tubs, is single, has never had an STD and no children. He does not have any pets. He smoked tobacco since age 15. He also uses marijuana. Has never used IV drugs and drinks a handful of alcoholic beverages weekly. He has not missed a day of work for illness. 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 He denies any international travel. PAST MEDICAL AND SURGICAL HISTORY: Negative. SOCIAL HISTORY: As above. 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 FAMILY HISTORY: His mom had lung cancer and at age 49. Uncle has diabetes. His siblings are alive and well. ALLERGIES: NKDA. MEDICATIONS: Ertapenem 1 g IV daily started 05/16, colchicine 0.6 mg twice daily. Tylenol as needed. Dilaudid as needed. Toradol as needed. NicoDerm patch, Zofran as needed, Phenergan as needed, vancomycin 1 g IV q.12. REVIEW OF SYSTEMS: A complete 10-point review of systems was performed and is negative except as mentioned in the HPI. In addition, patient denies joint pain , rashes, abdominal pain, diarrhea, changes in weight, urinary symptoms, headache, changes in vision. PHYSICAL EXAM: GENERAL: Patient has been afebrile throughout his 2 hospital courses. VITAL SIGNS: Blood pressure is currently 118/90, heart rate 91, respiratory rate is 16, saturation 94%. Temperature 36.8. GENERAL: This is a pleasant male sitting in bed, in no acute distress. He appears older than stated age. HEENT: Pupils are reactive bilaterally. No conjunctival hemorrhages. Oropharynx: Poor dentition. He has obvious dental caries on the left upper side. He has moist mucous membranes. NECK: Supple. No jaw pain. No lymphadenopathy. CARDIOVASCULAR: He had a regular rate with a pericardial rub at the apex of the heart. No other murmurs were detected. CHEST: He had bibasilar crackles. No wheezes. ABDOMEN: Soft, nontender. Bowel sounds are present. Insertion site of the pericardial drain was without abnormality in the mid chest area. EXTREMITIES: Patient has no clubbing, cyanosis or edema. He had no splinter hemorrhages, Janeway lesions. No joint swelling or warmth. NEUROLOGIC: He is alert and oriented x4 with fluent speech. He was moving all 4 extremities equally. SKIN: He had no peripheral stigmata of endocarditis. LABORATORY: White count is 13.3, hematocrit 36, platelets of 312, creatinine 0.8. AST 21, ALT 25, alkaline phosphatase 101, troponin was negative. BNP 137 , HIV negative, pericardial fluid showed 16,339 WBCs and 6000 RBCs, 96% neutrophils, LDH was 6599, albumin 2.4. Amylase was negative. Blood cultures from 05/16/2017 1 of 2 gram-positive cocci. Pericardial fluid from 05/17 showed 4+ PMNs but no organisms. Gram stain culture is pending. Total bilirubin 0.7. IMAGING: As per HPI. Chest x-ray showed enlarged cardiomediastinal silhouette and bibasilar infiltrates. ASSESSMENT AND PLAN: This is a 41-year-old male, who presents with pericarditis without prodromic febrile illness who subsequently developed pericardial tamponade with evidence of right heart failure with ascites, hepatic congestion, pericolic fluid, who is symptomatically improved after drainage. It was noted he has 1 of 2 positive blood cultures for GPCs that were unable to be identified by the blood PCR rapid identification. Certainly, patient could have bacteremia and/or bacterial pericarditis and/or endocarditis due to dental source. Pericardial fluid is not purulent in appearance but has high WBC. Also consider more rare etiologies of endocarditis including histoplasmosis, coccidiomycosis, TB although serosanguineous nature of fluid collection and neutrophilic predominance of cells makes this seemingly less likely. Also would consider malignancy in the differential although neutrophilic predominance also makes this less likely. Reasonable to add on fungal cultures, AFB cultures to pericardial fluid and we will await identification of blood cultures. Would also add a specific pathology analysis of pericardial fluid. Agree with continued IV antibiotics with ertapenem and vancomycin till more details can be sorted out. Time was 75 minutes, greater than 50% time spent with education, counseling and patient of differential diagnosis, planned workup and continued antibiotic therapy. Thank you for this consultation. We will continue to follow on a daily basis. /[id number]/MODL MTDD
--- NOTE | 2017-05-18 17:07 | SOAPPROG ---
SOAP Progress Note Assessment/Plan: Assessment: 1. Pericarditis 2. Pericardial fluid A he has a had a over 600 cc of fluid coming out. He had an he has also she developed more little more fluid today in the pericardial space. We will leave the pericardial drain in at this time. We will do a repeat echocardiographic study in the morning and see how he is doing. Clinically he feels much better. There is no S3-S4 or rub. He has no evidence to suggest an infectious process that is impacting the valves. will see how much more fluid he has in the morning. The studies of his pericardial fluid are pending. He is on the appropriate medications so far. All his questions have been answered discussed w the icu placement officer Plan: 05/18/17 17:04 Subjective: He feels well. He has no fever chills or cough He is not having shortness of breath He is having no chest pain He has not had any fevers or chills with any of this. He has had no records No rashes no hot swollen joints. no Neurologic complaints no lightheadedness or dizziness. Objective: Vital Signs Temp Pulse Resp BP Pulse Ox 36.9 C 103 H 20 141/92 H 93 05/18/17 16:00 05/18/17 16:00 05/18/17 16:00 05/18/17 16:00 05/18/17 16:00 Microbiology 05/17/17 Unknown Gram Stain - Final Pericardial Fluid - Aspirate Laboratory Results 05/18/17 04:00 05/18/17 04:00 05/17/17 05/18/17 05/19/17 05:59 05:59 05:59 Intake Total 3300 2439 Output Total 650 1750 652 Balance 2650 689 -652 PT 13.6 SEC (12.0-15.0) 05/16/17 12:25 INR 1.05 (0.83-1.16) 05/16/17 12:25 Physical Exam - Physical Exam General Appearance: alert Neck: supple Respiratory: rhonchi Cardiac/Chest: regular rate, rhythm, systolic murmur, other ( pericardial drain in place) Abdomen: non-tender, soft, No organomegaly Skin: normal color, warm/dry Extremities: No pedal edema, No calf tenderness Neuro/Psych: alert, normal mood/affect ICD10 Worksheet Patient Problems: Problems Problem Status Onset Pericarditis Acute Chest pain Acute
[2017-05-19 06:15] LABS: % IMMATURE GRANULYOCYTES 0.4 % (0.0-1.1); ABSOLUTE IMMATURE GRANULOCYTES 0.05 10^3/uL (0.00-0.10); ADD DIFF? NO; ADD MORPH? NO; ADD SCAN? NO; ATYPICAL LYMPHOCYTE FLAG 80 (0-99); FRAGMENT RBC FLAG 0 (0-99); HEMATOCRIT 34.3 % (40.0-51.0); HEMOGLOBIN 11.5 g/dL (13.7-17.5); LEFT SHIFT FLG 0 (0-99); LIPEMIA HEMOLYSIS FLAG 80 (0-99); MEAN CELL HEMOGLOBIN 30.3 pg (27.9-34.1); MEAN CELL HEMOGLOBIN CONCENTR. 33.5 g/dL (32.4-36.7); MEAN CELL VOLUME 90.3 fL (81.5-99.8); MEAN PLATELET VOLUME 8.9 fL (8.7-11.7); PLATELET CLUMPS FLAG 10 (0-99); PLATELET COUNT 381 10^3/uL (150-400); RED CELL DISTRIBUTION WIDTH 13.2 % (11.5-15.2)
[2017-05-19] MEDS: NICOTINE 21 MG/24 HR PATCH TD SCH (08:50)
[2017-05-19] MEDS: COLCHICINE 0.6 MG CAP/TAB PO SCH ×2 (08:51→20:17)
[2017-05-19] MEDS: cefTRIAXone 2 GM in D5W 50 ML IV SCH (08:54)
--- NOTE | 2017-05-19 09:44 | ECHO ---
[id number] [id number] + + [address] : : [place] [address] : : [phone] + + Adult Echocardiographic Report + -----+ :Name: ETHAN COLLIER LStudy Date: 05/19/2017 09:21 AM : : Hospital Admission Number: [id number] Location : 255: :: 1975 Gender: Male : :Age: 41 yrs Race: WH : :Reason For Study: COPD/SOB/CP/Eval pericardial effusion : + -----+ Pericardium/Pleural Small residual pericardial effusion with echogencity within. Left pleural effusion. Conclusion Limited 2-D echo. Small residual pericardial effusion with echogencity within. Left pleural effusion. Final Reading Physician: Radha Mello signed on 05/19/2017 09:43 AM Ordering Physician: Taz Contreras Performed By: Cici Hannon, [facility]
[2017-05-19] MEDS: KETOROLAC 15 MG/1 ML SDV IVP PRN ×2 (11:41→20:17)
--- NOTE | 2017-05-19 12:13 | PCMIDPN ---
Assessment/Plan: Assessment/Plan: 1. Pericarditis with pericardial tamponade: s/p pericardiocentesis - Cx with Strep intermedius. -blood cx ngtd - Limited Echo noted - Wbc trending down. -HIV/HBV/HCV neg - Now on Ceftriaxone. Med ceftriaxone 2g daily Subjective: Afebrile. In ICU. Feeling better overall. Denies chest pain, sob, sputum production. Minimal cough. Denies abd pain or diarrhea. Objective: Vital Signs Temp Pulse Resp BP Pulse Ox 36.8 C 94 21 H 116/81 H 93 05/19/17 08:00 05/19/17 10:00 05/19/17 10:00 05/19/17 10:00 05/19/17 10:00 Microbiology 05/18/17 12:30 Mycobacterial Smear (PRAAMJIT) - Final Pericardial Fluid - Aspirate 05/17/17 Unknown Gram Stain - Final Pericardial Fluid - Aspirate Laboratory Results 05/19/17 06:00 05/18/17 04:00 05/18/17 05/19/17 05/20/17 05:59 05:59 05:59 Intake Total 2439 800 Output Total 1750 1997 Balance 689 -3398 - Physical Exam General Appearance: alert, no apparent distress EENT: poor dentition (several missing teeth), other Respiratory: lungs clear (anteriorly) Cardiac/Chest: regular rate, rhythm Extremities: No swelling Abdomen: normal bowel sounds, non-tender, soft, No distended Skin: No erythema ICD10 Worksheet Patient Problems: Problems Problem Status Onset Pericarditis Acute Chest pain Acute
[2017-05-19 13:20] LABS: HEPATITIS Bs Ab QUANT <5.0 mIU/mL
--- NOTE | 2017-05-19 16:27 | SOAPPROG ---
SOAP Progress Note Assessment/Plan: Assessment: 1. Pericarditis 2. Pericardial fluid Plan: 05/18/17 17:04 05/19/17 16:27 Pericarditis Pleural effusion The patient has now been found to have bacteria in his pericardial fluid and in his blood. He is being seen by the ID service. He is on antibiotics. Is draining less from his pericardial effusion and he has less pericardial effusion on his echocardiogram today. He however in light of these new findings I will leave the drain in until tomorrow and we will remove the drain tomorrow. If he had a bacterial with pericardial effusion I think he would be much much sicker at this point time. Did however have 16,000 white cells in the fluid. I will get cardiac surgery and also evaluate him. A does have pericardial fluid that is being evaluated for cytology were waiting for that as well. I am very concerned about his health overall. I have answered all his questions. Subjective: . He has no fever chills. He does not have chest pain. He does not have chest pain he does not have nausea vomiting Does not have peripheral edema He does not have rashes. He has not been having arthralgias. He does not have sputum production or cough Objective: Vital Signs Temp Pulse Resp BP Pulse Ox 36.4 C 96 17 125/89 H 92 05/19/17 15:38 05/19/17 15:38 05/19/17 15:38 05/19/17 15:38 05/19/17 15:38 Microbiology 05/17/17 Unknown Gram Stain - Final Pericardial Fluid - Aspirate 05/18/17 12:30 Mycobacterial Smear (PARAMJIT) - Final Pericardial Fluid - Aspirate Laboratory Results 05/19/17 06:00 05/18/17 04:00 05/18/17 05/19/17 05/20/17 05:59 05:59 05:59 Intake Total 2439 800 Output Total 1750 1998 Balance 689 -1198 PT 13.6 SEC (12.0-15.0) 05/16/17 12:25 INR 1.05 (0.83-1.16) 05/16/17 12:25 Microbiology 05/17/17 Unknown Pericardial Fluid - Aspirate Gram Stain - Final 05/17/17 Unknown Pericardial Fluid - Aspirate Body Fluid Culture - Preliminary Streptococcus Intermedius Laboratory Tests 05/16/17 05/17/17 05/17/17 18:45 04:25 04:25 WBC 16.84 H Hct 33.0 L Plt Count 313 D Absolute Neuts (auto) Absolute Monos (auto) Urine Blood 1+ H Pericard Appearance Pericard WBC Pericard RBC Pericard Neutrophils Pericard Lymphocytes Peric Monos/Macrophages Pericardial Albumin Pericardial LDH Pericardial Amylase Urine Opiates Screen U Marijuana (THC) Screen TORRES Screen Hep Bs Antigen Hep Bs Antibody Hep Bs Antibody, Quant Hepatitis C Antibody HIV 1&2 Antibody NEGATIVE Cytology 05/17/17 05/17/17 05/17/17 13:43 Unknown Unknown WBC Hct Plt Count Absolute Neuts (auto) Absolute Monos (auto) Urine Blood Pericard Appearance CLOUDY H Pericard WBC 15291 H Pericard RBC 6109 H Pericard Neutrophils 96 Pericard Lymphocytes 2 Peric Monos/Macrophages 2 Pericardial Albumin 2.4 Cancelled Pericardial LDH 6599 Pericardial Amylase < 30 Urine Opiates Screen U Marijuana (THC) Screen TORRES Screen Hep Bs Antigen Hep Bs Antibody Hep Bs Antibody, Quant Hepatitis C Antibody HIV 1&2 Antibody Cytology 05/18/17 05/18/17 05/18/17 04:27 04:27 11:45 WBC Hct Plt Count Absolute Neuts (auto) Absolute Monos (auto) Urine Blood Pericard Appearance Pericard WBC Pericard RBC Pericard Neutrophils Pericard Lymphocytes Peric Monos/Macrophages Pericardial Albumin Pericardial LDH Pericardial Amylase Urine Opiates Screen U Marijuana (THC) Screen TORRES Screen Pending Hep Bs Antigen NEGATIVE Hep Bs Antibody Negative Hep Bs Antibody, Quant <5.0 Hepatitis C Antibody NEGATIVE HIV 1&2 Antibody Cytology 05/18/17 05/18/17 05/19/17 12:30 14:25 06:00 WBC 11.20 H Hct 34.3 L Plt Count 381 D Absolute Neuts (auto) 7.84 H Absolute Monos (auto) 1.38 H Urine Blood Pericard Appearance Pericard WBC Pericard RBC Pericard Neutrophils Pericard Lymphocytes Peric Monos/Macrophages Pericardial Albumin Pericardial LDH Pericardial Amylase Urine Opiates Screen 348 U Marijuana (THC) Screen > 800 TORRES Screen Hep Bs Antigen Hep Bs Antibody Hep Bs Antibody, Quant Hepatitis C Antibody HIV 1&2 Antibody Cytology RECEIVED Physical Exam - Physical Exam General Appearance: alert Respiratory: lungs clear, rhonchi Cardiac/Chest: regular rate, rhythm, systolic murmur, No edema Abdomen: non-tender, soft, No organomegaly Skin: warm/dry, No pallor Neuro/Psych: no motor/sensory deficits, alert ICD10 Worksheet Patient Problems: Problems Problem Status Onset Pericarditis Acute Chest pain Acute
--- NOTE | 2017-05-19 17:52 | HOSPPROG ---
Hospitalist Progress Note Assessment/Plan: * Acute pericarditis with rapidly increasing pericardial effusion, s/p pericardiocentesis - now with pericardial drain. Cx grew strep intermedius. -continue colchicine, motrin for pain -follow drain output -changed to ceftriaxone, ID following -cards following, plans to remove drain tomorrow * Sepsis - Likely secondary to above. Improved. BCx's with Coag neg staph, likely contaminant. Aspiration PNA considered initially, though CXR not super consistent with this. -Cont Ceftriaxone as he is clinically improving * Acute respiratory failure - O2 requirement improved from 10 LPM to 1.5 LPM -wean O2 as able * Hepatic congestion/ascites - with intractable N/V, improved. * Daily THC user * Full code * DVT PPLX - Pt relatively low risk. Lovenox deferred to minimize risk of hemorrhagic conversion of pericardial effusion. SCD's / ambulation ordered. * Dispo - cont inpt Subjective: Pt feels much better. Denies CP or SOB. No fevers. Ambulating. Eating well. Objective: Vital Signs Temp Pulse Resp BP Pulse Ox 36.4 C 96 17 125/89 H 92 05/19/17 15:38 05/19/17 15:38 05/19/17 15:38 05/19/17 15:38 05/19/17 15:38 Microbiology 05/17/17 Unknown Gram Stain - Final Pericardial Fluid - Aspirate 05/18/17 12:30 Mycobacterial Smear (PARAMJIT) - Final Pericardial Fluid - Aspirate Laboratory Results 05/19/17 06:00 05/18/17 04:00 05/18/17 05/19/17 05/20/17 05:59 05:59 05:59 Intake Total 2439 800 Output Total 1750 1997 Balance 689 -1198 PT 13.6 SEC (12.0-15.0) 05/16/17 12:25 INR 1.05 (0.83-1.16) 05/16/17 12:25 - Physical Exam Constitutional: no apparent distress Eyes: PERRL Ears, Nose, Mouth, Throat: moist mucous membranes Cardiovascular: regular rate and rhythym Respiratory: no respiratory distress, other (left basilar crackles) Gastrointestinal: normoactive bowel sounds, soft, non-tender abdomen Skin: warm Musculoskeletal: full muscle strength Neurologic: AAOx3 ICD10 Worksheet Patient Problems: Problems Problem Status Onset Pericarditis Acute Chest pain Acute
[2017-05-20 04:44] LABS: % IMMATURE GRANULYOCYTES 0.7 % (0.0-1.1); ABSOLUTE IMMATURE GRANULOCYTES 0.08 10^3/uL (0.00-0.10); ADD DIFF? NO; ADD MORPH? NO; ADD SCAN? YES; FRAGMENT RBC FLAG 0 (0-99); HEMATOCRIT 36.3 % (40.0-51.0); HEMOGLOBIN 12.2 g/dL (13.7-17.5); LEFT SHIFT FLG 10 (0-99); LIPEMIA HEMOLYSIS FLAG 80 (0-99); MEAN CELL HEMOGLOBIN 30.1 pg (27.9-34.1); MEAN CELL HEMOGLOBIN CONCENTR. 33.6 g/dL (32.4-36.7); MEAN CELL VOLUME 89.6 fL (81.5-99.8); MEAN PLATELET VOLUME 8.9 fL (8.7-11.7); PLATELET CLUMPS FLAG 0 (0-99); PLATELET COUNT 432 10^3/uL (150-400); RED BLOOD CELL COUNT 4.05 10^6/uL (4.40-6.38); RED CELL DISTRIBUTION WIDTH 13.2 % (11.5-15.2)
[2017-05-20 04:51] LABS: ATYPICAL LYMPHOCYTE FLAG 170 (0-99)
[2017-05-20 05:12] LABS: SCAN NEGATIVE
[2017-05-20] MEDS: NICOTINE 21 MG/24 HR PATCH TD SCH (08:18)
[2017-05-20] MEDS: COLCHICINE 0.6 MG CAP/TAB PO SCH ×2 (08:18→19:48)
[2017-05-20] MEDS ORDERED: ALTEPLASE 2 MG VIAL IVP PRN (09:56)
[2017-05-20] MEDS: cefTRIAXone 2 GM in D5W 50 ML IV SCH (11:42)
--- NOTE | 2017-05-20 13:54 | HOSPPROG ---
Hospitalist Progress Note Assessment/Plan: * Acute pericarditis with rapidly increasing pericardial effusion, s/p pericardiocentesis - now with pericardial drain. Cx grew strep intermedius, ? oral source with poor dentition. He denies IVDA. -continue colchicine, nsaids for pain -follow drain output -changed to ceftriaxone, ID following, planning for total 4 weeks of IV atbx -discussed with cards, plans to remove drain tomorrow * Sepsis - Likely secondary to above. Improved. BCx's with Coag neg staph, likely contaminant. Aspiration PNA considered initially, though CXR not super consistent with this. -Cont Ceftriaxone as he is clinically improving * Acute respiratory failure - O2 requirement improved from 10 LPM to 1.5 LPM -wean O2 as able * Hepatic congestion/ascites - with intractable N/V, improved. * Daily THC user * Full code * DVT PPLX - Pt relatively low risk. Lovenox deferred to minimize risk of hemorrhagic conversion of pericardial effusion. SCD's / ambulation ordered. * Dispo - cont inpt Subjective: Pt feels well. Wishes to go home soon. No CP or SOB. Has some wet cough, non-productive. No fevers. Objective: Vital Signs Temp Pulse Resp BP Pulse Ox 36.6 C 98 20 122/94 H 94 05/20/17 08:00 05/20/17 11:32 05/20/17 11:32 05/20/17 11:32 05/20/17 11:32 Microbiology 05/17/17 Unknown Gram Stain - Final Pericardial Fluid - Aspirate Body Fluid Culture - Final Streptococcus Intermedius 05/18/17 12:30 Mycobacterial Smear (PARAMJIT) - Final Pericardial Fluid - Aspirate Laboratory Results 05/20/17 03:46 05/18/17 04:00 05/19/17 05/20/17 05/21/17 05:59 05:59 05:59 Intake Total 800 560 50 Output Total 1997 100 0 Balance -1198 460 50 PT 13.6 SEC (12.0-15.0) 05/16/17 12:25 INR 1.05 (0.83-1.16) 05/16/17 12:25 - Physical Exam Constitutional: no apparent distress Eyes: PERRL Ears, Nose, Mouth, Throat: moist mucous membranes, poor dentition Cardiovascular: regular rate and rhythym Respiratory: no respiratory distress, other (diminished at left base with faint crackles) Gastrointestinal: normoactive bowel sounds, soft, non-tender abdomen Skin: warm Musculoskeletal: full muscle strength Neurologic: AAOx3 Psychiatric: interacting appropriately ICD10 Worksheet Patient Problems: Problems Problem Status Onset Pericarditis Acute Chest pain Acute
[2017-05-20] MEDS ORDERED: IBUPROFEN 600 MG TAB PO PRN (15:47)
--- NOTE | 2017-05-20 16:07 | PCMIDPN ---
Assessment/Plan: Assessment: Bacterial pericarditis secondary to strep intermedius. Patient is not an IV drug user. This likely means that the patient had bacteremia secondary to suboptimal dentition which seeded his pericardial space. Patient has a pericardial catheter which is not significantly draining fluid at this point. He continues on ceftriaxone daily. Generally he appears much improved. Would suspect he will need a 4 week course of treatment. Plan: 1. Continue IV ceftriaxone daily. 2. Probable discontinuation of pericardial drain if no further fluid is being liberated. 3. Follow laboratory values. 4. Obtain PICC line. Patient will need IV ceftriaxone for 4 weeks. 05/20/17 16:57 05/20/17 16:58 Subjective: Patient is feeling much improved. Still has some discomfort in the pericardial area secondary to the drain placement. No fevers or chills. Tolerating ceftriaxone without issue. Objective: Ceftriaxone #2 Vital Signs Temp Pulse Resp BP Pulse Ox 36.7 C 97 20 126/85 H 95 05/20/17 15:55 05/20/17 15:55 05/20/17 15:55 05/20/17 15:55 05/20/17 15:55 Microbiology 05/17/17 Unknown Gram Stain - Final Pericardial Fluid - Aspirate Body Fluid Culture - Final Streptococcus Intermedius 05/18/17 12:30 Mycobacterial Smear (PARAMJIT) - Final Pericardial Fluid - Aspirate Laboratory Results 05/20/17 03:46 05/18/17 04:00 05/19/17 05/20/17 05/21/17 05:59 05:59 05:59 Intake Total 800 560 50 Output Total 1997 100 0 Balance -1198 460 50 - Physical Exam General Appearance: WD/WN, alert, no apparent distress, thin Respiratory: lungs clear, normal breath sounds, No respiratory distress Cardiac/Chest: regular rate, rhythm, No tachycardia Skin: normal color, warm/dry, No rash Neuro/Psych: alert, normal mood/affect, oriented x 3 ICD10 Worksheet Patient Problems: Problems Problem Status Onset Pericarditis Acute Chest pain Acute
--- NOTE | 2017-05-20 16:26 | SOAPPROG ---
SOAP Progress Note Assessment/Plan: Assessment: 1. Pericarditis 2. Pericardial fluid Plan: 05/18/17 17:04 05/19/17 16:27 Pericarditis Pleural effusion 05/20/17 16:24 1. Pericarditis 2. Pleural effusion 3. History of drug use I have discussed this case with thoracic surgery Service. We are going to delay a window procedure at this point. They would like to see how much she drains tomorrow and possibly pull the drain that time. We want to leave the drain in for another day. He is draining from his pericardial space. We will also do a repeat echocardiographic study tomorrow Have 7 talked to the patient about all his questions. He is currently stable. He needs full evaluation for where an why he would not up with bacterial pericarditis The prognosis is very dangerous. Subjective: Is feeling stronger today He is not having chest pain He is not having fevers or chills He has no orthopnea PND or dyspnea on exertion. He is not having any new complaints. He would like to leave the hospital. Objective: Vital Signs Temp Pulse Resp BP Pulse Ox 36.7 C 97 20 126/85 H 95 05/20/17 15:55 05/20/17 15:55 05/20/17 15:55 05/20/17 15:55 05/20/17 15:55 Microbiology 05/17/17 Unknown Gram Stain - Final Pericardial Fluid - Aspirate Body Fluid Culture - Final Streptococcus Intermedius 05/18/17 12:30 Mycobacterial Smear (PARAMJIT) - Final Pericardial Fluid - Aspirate Laboratory Results 05/20/17 03:46 05/18/17 04:00 05/19/17 05/20/17 05/21/17 05:59 05:59 05:59 Intake Total 800 560 50 Output Total 1997 100 0 Balance -1198 460 50 PT 13.6 SEC (12.0-15.0) 05/16/17 12:25 INR 1.05 (0.83-1.16) 05/16/17 12:25 his ARB still doing move his or dizzy just to comment and clothes tooose a he is Physical Exam - Physical Exam General Appearance: no apparent distress Neck: full range of motion, supple Respiratory: rhonchi Cardiac/Chest: systolic murmur (No rubs present/pericardial drain in place) Abdomen: normal bowel sounds, non-tender, No organomegaly Skin: warm/dry Extremities: non-tender, No pedal edema, No calf tenderness Neuro/Psych: alert, normal mood/affect ICD10 Worksheet Patient Problems: Problems Problem Status Onset Pericarditis Acute Chest pain Acute
[2017-05-20] MEDS: oxyCODONE IR 5 MG TAB PO PRN (22:33)
--- NOTE | 2017-05-21 02:54 | GCON ---
[f rep st] CONSULTATION DATE OF CONSULTATION: 05/20/2017 The patient is seen at the request of Dr. Contreras with the patient's permission. IMPRESSION: Bacteremia with Strep intermedius grown from pericardial effusion, currently on antibio tics. RECOMMENDATIONS: This patient appears to have responded well to percutaneous drainage with decrease in his white count and no evidence of fevers or chills. He is no longer draining from his pericard ial drain. I would remove that, and we will recheck an echo in the morning. At the present time, I see no indication to surgically drain; however, should he have significant recurrence of fluid or f lurdes or elevated white count, I would perform a surgical drain with biopsy and irrigation. I will follow him with you. Patient was advised of the same. CHIEF COMPLAINT: Acute pericarditis. HISTORY OF PRESENT ILLNESS: The patient underwent pericardiocentesis with initially 400 cc of serou s fluid which was culture positive as previously stated. The drain was left in place and has contin ued to drain until today and most recently had 193 cc over the last 24-hour period but none today wi th multiple attempts to aspirate, including by me. PAST MEDICAL HISTORY: As stated in the chart. PHYSICAL EXAMINATION: GENERAL: This is a slender, disheveled young man, who is alert, oriented, co operative, in no apparent distress. VITAL SIGNS: Blood pressure is 126/85, pulse 98, respirations 14 and nonlabored, O2 saturation was 95% on 1 L. T-max is 36.7. White count is 11.36. /[id number]/MODL
[2017-05-21 06:19] LABS: ADD MORPH? NO; ADD SCAN? YES; FRAGMENT RBC FLAG 0 (0-99); HEMATOCRIT 39.1 % (40.0-51.0); HEMOGLOBIN 13.3 g/dL (13.7-17.5); LEFT SHIFT FLG 20 (0-99); LIPEMIA HEMOLYSIS FLAG 90 (0-99); MEAN CELL HEMOGLOBIN 30.1 pg (27.9-34.1); MEAN CELL VOLUME 88.5 fL (81.5-99.8); MEAN PLATELET VOLUME 8.4 fL (8.7-11.7); PLATELET CLUMPS FLAG 20 (0-99); PLATELET COUNT 487 10^3/uL (150-400); RED BLOOD CELL COUNT 4.42 10^6/uL (4.40-6.38); RED CELL DISTRIBUTION WIDTH 13.3 % (11.5-15.2)
[2017-05-21 06:20] LABS: ATYPICAL LYMPHOCYTE FLAG 200 (0-99)
[2017-05-21 06:40] LABS: ADD DIFF? YES; SCAN POSITIVE
[2017-05-21 06:44] LABS: PLATELET ESTIMATE INCREASED (ADEQ)
[2017-05-21] MEDS: cefTRIAXone 2 GM in D5W 50 ML IV SCH (08:33)
[2017-05-21] MEDS: NICOTINE 21 MG/24 HR PATCH TD SCH (08:33)
[2017-05-21] MEDS: COLCHICINE 0.6 MG CAP/TAB PO SCH ×2 (08:34→20:16)
--- NOTE | 2017-05-21 09:12 | HOSPPROG ---
Hospitalist Progress Note Assessment/Plan: * Acute pericarditis with rapidly increasing pericardial effusion, s/p pericardiocentesis - pericardial drain removed 05/20. Cx grew strep intermedius , ?oral source with poor dentition. He denies IVDA. Rising wbc's today with bands. -rpt echo this am- small residual pericardial effusion -continue colchicine, nsaids for pain -cont ceftriaxone, total 4 weeks planned per ID -PICC line placed * Sepsis - Likely secondary to above. Rising wbc's with new bands concerning. BCx's with Coag neg staph, likely contaminant. Aspiration PNA considered initially, though CXR not super consistent with this. -Cont Ceftriaxone for now * Acute hypoxemic respiratory failure - left pleural effusion noted, ?PNA. O2 requirement improved from 10 LPM to 2.5 LPM -repeat CXR today to eval pleural effusion, may warrant thoracentesis for gram stain and Cx if enlarging * Hepatic congestion/ascites - with intractable N/V, improved. * Daily THC user * Full code * DVT PPLX - Pt relatively low risk. Lovenox deferred to minimize risk of hemorrhagic conversion of pericardial effusion. SCD's / TID ambulation ordered. * Dispo - cont inpt Subjective: Pt feels better. Reports some recurring chest discomfort. No SOB. Still coughing a bit, non-productive. No fevers. Objective: Vital Signs Temp Pulse Resp BP Pulse Ox 36.8 C 89 18 115/83 H 92 05/21/17 07:32 05/21/17 07:32 05/21/17 07:32 05/21/17 07:32 05/21/17 07:32 Microbiology 05/17/17 Unknown Gram Stain - Final Pericardial Fluid - Aspirate Body Fluid Culture - Final Streptococcus Intermedius Laboratory Results 05/21/17 06:10 05/18/17 04:00 05/20/17 05/21/17 05/22/17 05:59 05:59 05:59 Intake Total 560 830 Output Total 100 0 Balance 460 830 PT 13.6 SEC (12.0-15.0) 05/16/17 12:25 INR 1.05 (0.83-1.16) 05/16/17 12:25 - Physical Exam Constitutional: no apparent distress Eyes: PERRL Ears, Nose, Mouth, Throat: moist mucous membranes Cardiovascular: regular rate and rhythym Respiratory: no respiratory distress, other (diminished at bases) Gastrointestinal: normoactive bowel sounds, soft, non-tender abdomen Skin: warm Musculoskeletal: full muscle strength Neurologic: AAOx3 Psychiatric: interacting appropriately ICD10 Worksheet Patient Problems: Problems Problem Status Onset Pericarditis Acute Chest pain Acute
--- NOTE | 2017-05-21 13:17 | ECHO ---
[id number] + + [address] : : [place] [address] : : [phone] + + Adult Echocardiographic Report + -----+ :Name: ETHAN COLLIER LStudy Date: 05/21/2017 08:22 AM : : Hospital Admission Number: [id number] Location : 211: :: 1975 Gender: Male Height: 72 in : :Age: 41 yrs Race: WH Weight: 149 lb : :Reason For Study: Evaluate pericardial effusion : : BSA: 1.9 meters2 : + -----+ Pericardium/Pleural Small residual pericardial effusion with echogencity within. Left pleural effusion. Conclusion Limited 2-D echo. Small residual pericardial effusion with echogencity within. Left pleural effusion. Final Reading Physician: Radha Mello signed on 05/21/2017 01:16 PM Ordering Physician: Taz Barry Performed By: Cici Hannon, [facility]
--- NOTE | 2017-05-21 14:40 | SOAPPROG ---
SOAP Progress Note Assessment/Plan: Assessment: 1. Pericarditis 2. Pericardial fluid Plan: 05/21/17 14:37 1. Pericarditis 2. Pleural effusion 3. History of drug use Today he feels much better. His pericardial drain is out. He is not having fevers or chills but his white count is elevated. At this point time we will defer to the medical staff team as to his further management. He will follow up with the nurse practitioner at [facility] a week after his discharge. He will follow up with his primary care doctor before a week after discharge. If we can be of any further service please let us know. Otherwise I would continue the current therapy. Cardiac surgery is available to put in a window if he reaccumulate with significant amount of fluid if he develops more symptoms or if he deteriorates clinically shows more sign of infection sepsis etc . Subjective: He is feeling much better today He has no nausea vomiting Not having chest pain No fever chills No rash. Objective: Vital Signs Temp Pulse Resp BP Pulse Ox 36.5 C 84 18 114/73 92 05/21/17 11:56 05/21/17 11:56 05/21/17 11:56 05/21/17 11:56 05/21/17 11:56 Microbiology 05/17/17 Unknown Gram Stain - Final Pericardial Fluid - Aspirate Body Fluid Culture - Final Streptococcus Intermedius Laboratory Results 05/21/17 06:10 05/18/17 04:00 05/20/17 05/21/17 05/22/17 05:59 05:59 05:59 Intake Total 560 830 240 Output Total 100 0 Balance 460 830 240 PT 13.6 SEC (12.0-15.0) 05/16/17 12:25 INR 1.05 (0.83-1.16) 05/16/17 12:25 Physical Exam - Physical Exam General Appearance: no apparent distress Respiratory: rhonchi Cardiac/Chest: regular rate, rhythm, systolic murmur Abdomen: non-tender, No organomegaly, No pulsatile mass Back: No CVA tenderness Extremities: No pedal edema, No calf tenderness ICD10 Worksheet Patient Problems: Problems Problem Status Onset Pericarditis Acute Chest pain Acute
--- NOTE | 2017-05-21 15:05 | PCMIDPN ---
Assessment/Plan: Assessment: Bacterial pericarditis secondary to strep intermedius. Patient is not an IV drug user. This likely means that the patient had bacteremia secondary to suboptimal dentition which seeded his pericardial space. Patient has a pericardial catheter which is not significantly draining fluid at this point. He continues on ceftriaxone daily. Generally he appears much improved. Would suspect he will need a 4 week course of treatment. Slight increase in white blood cell count today. Patient does have a known left pleural effusion which is not clearly infected. Will continue antibiotics and observe tomorrow. Plan: 1. Continue IV ceftriaxone daily. 2. Follow laboratory values. 3. Discharged on 4 weeks of ceftriaxone if white blood cells continue to decrease. 05/21/17 17:39 Subjective: Patient is resting in his hospital chair. He feels a little bit of precordial irritation. Otherwise he is breathing well and feeling well. No fevers or chills. Objective: Ceftriaxone # 3 Vital Signs Temp Pulse Resp BP Pulse Ox 36.5 C 84 18 114/73 92 05/21/17 11:56 05/21/17 11:56 05/21/17 11:56 05/21/17 11:56 05/21/17 11:56 Microbiology 05/17/17 Unknown Gram Stain - Final Pericardial Fluid - Aspirate Body Fluid Culture - Final Streptococcus Intermedius Laboratory Results 05/21/17 06:10 05/18/17 04:00 05/20/17 05/21/17 05/22/17 05:59 05:59 05:59 Intake Total 560 830 240 Output Total 100 0 Balance 460 830 240 - Physical Exam General Appearance: WD/WN, alert, no apparent distress, non-toxic Respiratory: lungs clear, normal breath sounds, No respiratory distress Cardiac/Chest: regular rate, rhythm, No tachycardia Skin: normal color, warm/dry, No rash Neuro/Psych: alert, normal mood/affect, oriented x 3 ICD10 Worksheet Patient Problems: Problems Problem Status Onset Pericarditis Acute Chest pain Acute
[2017-05-21] MEDS: oxyCODONE IR 5 MG TAB PO PRN (22:48)
[2017-05-22 06:20] LABS: % IMMATURE GRANULYOCYTES 0.9 % (0.0-1.1); ABSOLUTE IMMATURE GRANULOCYTES 0.13 10^3/uL (0.00-0.10); ADD DIFF? NO; ADD MORPH? NO; ADD SCAN? YES; FRAGMENT RBC FLAG 0 (0-99); HEMATOCRIT 41.1 % (40.0-51.0); HEMOGLOBIN 13.8 g/dL (13.7-17.5); LEFT SHIFT FLG 10 (0-99); LIPEMIA HEMOLYSIS FLAG 80 (0-99); MEAN CELL HEMOGLOBIN 29.8 pg (27.9-34.1); MEAN CELL HEMOGLOBIN CONCENTR. 33.6 g/dL (32.4-36.7); MEAN CELL VOLUME 88.8 fL (81.5-99.8); MEAN PLATELET VOLUME 8.4 fL (8.7-11.7); PLATELET CLUMPS FLAG 0 (0-99); PLATELET COUNT 516 10^3/uL (150-400); RED BLOOD CELL COUNT 4.63 10^6/uL (4.40-6.38); RED CELL DISTRIBUTION WIDTH 13.2 % (11.5-15.2)
[2017-05-22 06:33] LABS: ATYPICAL LYMPHOCYTE FLAG 100 (0-99)
[2017-05-22 07:04] LABS: SCAN POSITIVE
[2017-05-22 07:09] LABS: PLATELET ESTIMATE INCREASED (ADEQ)
--- NOTE | 2017-05-22 08:10 | PCMIDPN ---
Assessment/Plan: #Bacterial pericarditis due to streptococcus intermedius, persistently elevated wbc but AF --plan 4 weeks IV antibiotics, Stop date ceftriaxone 06/15 --repeat ECHO per cards recs --f/u with ID next week #RUL infiltrate, still some minimal O2 requirements. Longstanding tobacco use --CT chest to eval for abscess vs mass microbiology 05/16 blood cx 10/27 CoNS 05/17 pericardial culture: streptococcus intermedius medications ceftriaxone 2gm IV daily #4 Subjective: feeling better but does have productive cough appetite good no diarrhea Objective: Vital Signs Temp Pulse Resp BP Pulse Ox 36.8 C 90 20 109/71 95 05/22/17 04:00 05/22/17 04:00 05/22/17 04:00 05/22/17 04:00 05/22/17 04:00 Laboratory Results 05/22/17 06:05 05/18/17 04:00 05/21/17 05/22/17 05/23/17 05:59 05:59 05:59 Intake Total 830 1080 Output Total 0 Balance 830 1080 - Physical Exam General Appearance: alert, no apparent distress Respiratory: crackles (R side scattered), other (decreased bs throughout), No accessory muscle use, No wheezing Neck: supple Cardiac/Chest: regular rate, rhythm, other (no rub appreciated today) Extremities: No pedal edema Abdomen: non-tender, soft Skin: warm/dry, pallor, No rash Neuro/Psych: alert, normal mood/affect, oriented x 3 - Time Spent With Patient Time Spent with Patient: greater than 35 minutes (care coordinated with Dr. Hoover and Dr. Parnell. Review of plans for antibiotic therapy and further work up) Time Spent with Patient: Greater than 35 minutes spent on this patients care, greater than 50% of time spent counseling, educating, and coordinating care regarding the above mentioned plan. ICD10 Worksheet Patient Problems: Problems Problem Status Onset Pericarditis Acute Chest pain Acute
[2017-05-22] MEDS ORDERED: IOPAMIDOL (ISOVUE-300) 100 ML BTL ONE ×2 (09:03→09:33)
--- NOTE | 2017-05-22 09:05 | SOAPPROG ---
SOAP Progress Note Assessment/Plan: Assessment: Plan: 05/22/17 09:04 afebrile, slight increase WBC echo w scant pericardial debris, continue to follow Objective: Vital Signs Temp Pulse Resp BP Pulse Ox 36.9 C 86 17 103/74 94 05/22/17 08:00 05/22/17 08:00 05/22/17 08:00 05/22/17 08:00 05/22/17 08:00 Laboratory Results 05/22/17 06:05 05/18/17 04:00 05/21/17 05/22/17 05/23/17 05:59 05:59 05:59 Intake Total 830 1080 Output Total 0 Balance 830 1080 PT 13.6 SEC (12.0-15.0) 05/16/17 12:25 INR 1.05 (0.83-1.16) 05/16/17 12:25 ICD10 Worksheet Patient Problems: Problems Problem Status Onset Pericarditis Acute Chest pain Acute
[2017-05-22] MEDS: COLCHICINE 0.6 MG CAP/TAB PO SCH ×2 (10:13→19:45)
[2017-05-22] MEDS: NICOTINE 21 MG/24 HR PATCH TD SCH (10:13)
[2017-05-22] MEDS: cefTRIAXone 2 GM in D5W 50 ML IV SCH (10:13)
--- NOTE | 2017-05-22 11:27 | HOSPPROG ---
Hospitalist Progress Note Assessment/Plan: #Streptococcus pericarditis -4 wks IV abx through 06/15, PICC in place -repeat TTE with small effusion #RUL infiltrate: CT shows RUL segmental consolidation #Sepsis: resolved #Leukocytosis: afebrile. Concerning that trending up. Will monitor overnight. Remains afebrile #Acute hypoxemic resp failure: small consolidation on CT that does not warrant bronch. #THC dependence: counseled on cessation #Diet: regular #DVT ppx: SCD, ambulating #Disp: warrants inpt admission with elevated WBC, cont IV abx Subjective: breathing improved. Min CP today Objective: Vital Signs Temp Pulse Resp BP Pulse Ox 36.9 C 86 17 103/74 94 05/22/17 08:00 05/22/17 08:00 05/22/17 08:00 05/22/17 08:00 05/22/17 08:00 Laboratory Results 05/22/17 06:05 05/18/17 04:00 05/21/17 05/22/17 05/23/17 05:59 05:59 05:59 Intake Total 830 1080 Output Total 0 Balance 830 1080 PT 13.6 SEC (12.0-15.0) 05/16/17 12:25 INR 1.05 (0.83-1.16) 05/16/17 12:25 - Physical Exam Constitutional: other (thin) Eyes: PERRL Ears, Nose, Mouth, Throat: moist mucous membranes, hearing normal Cardiovascular: regular rate and rhythym Respiratory: rhonchi Gastrointestinal: normoactive bowel sounds Genitourinary: no bladder fullness Skin: warm Musculoskeletal: full muscle strength Neurologic: AAOx3 Psychiatric: interacting appropriately ICD10 Worksheet Patient Problems: Problems Problem Status Onset Pericarditis Acute Chest pain Acute
--- NOTE | 2017-05-22 14:32 | PDIAF ---
- Diagnosis Diagnosis: S. intermedius pericarditis Code Status: Full Code - Medication Management Discharge Medications: Medications to Continue on Transfer Colchicine [Colchicine (*)] 0.6 mg PO BID #60 ea 05/13/17 [Last Taken Unknown] Ibuprofen [Motrin (*)] 600 mg PO Q8HRS #30 tab 05/13/17 [Last Taken Unknown] Ondansetron HCl [Zofran] 4 mg PO Q4-6PRN PRN #10 tablet 05/15/17 [Last Taken Unknown] Skilled Nursing Antibiotics: ceftriaxone 2gm IV daily Cube Cutter Antibiotic Stop Date: 06/15/17 Discharge Medications: Refer to the Discharge Home Medication list for PRN reason. PICC Care - Routine: Yes - Labs/Radiology CBC Date: 05/25/17 (weekly thursday) CMP Date: 05/25/17 (weekly Thursday) Call or Fax Lab and Imaging Results to: [phone] Lara - Follow Up Care Current Providers and Referrals: Syl Bermudez MD [Medical Doctor] - 05/27/17 10:30 am NONE *PRIMARY CARE P,. [Primary Care Provider] - As per Instructions
--- NOTE | 2017-05-22 17:47 | SOAPPROG ---
RYAN Progress Note Assessment/Plan: Assessment: 1. Pericarditis 2. Pericardial fluid Plan: 05/21/17 14:37 1. Pericarditis 2. Pleural effusion 3. History of drug use 05/22/2017 he is feeling well right now. m CTSurgery is following . Cardiac cook is stable with no complaints. Will sign off now - please call us if needed at any time , exam no change today . follow up [facility] with [facility] level in 4 weeks Rajendra persaud / Wilber melendez / Wilber mitchell. Objective: Vital Signs Temp Pulse Resp BP Pulse Ox 37.1 C 93 18 112/76 91 L 05/22/17 16:33 05/22/17 16:33 05/22/17 16:33 05/22/17 16:33 05/22/17 16:33 Laboratory Results 05/22/17 06:05 05/18/17 04:00 05/21/17 05/22/17 05/23/17 05:59 05:59 05:59 Intake Total 830 1080 Output Total 0 Balance 830 1080 PT 13.6 SEC (12.0-15.0) 05/16/17 12:25 INR 1.05 (0.83-1.16) 05/16/17 12:25 ICD10 Worksheet Patient Problems: Problems Problem Status Onset Pericarditis Acute Chest pain Acute
[2017-05-22] MEDS ORDERED: guaiFENesin 200 MG TAB PO PRN (17:48)
[2017-05-22] MEDS ORDERED: ALBUTEROL 60 PUFFS/8 GM MDI IH PRN (17:49)
[2017-05-22] MEDS ORDERED: ALBUTEROL 200 PUFFS/18 GM MDI IH PRN (17:53)
--- NOTE | 2017-05-22 18:19 | SOAPPROG ---
SOAP Progress Note Assessment/Plan: Assessment: 41-year-old admitted 05/16 with pericardial chest pain and ongoing nausea and vomiting. He had been in the emergency room in the days prior and diagnosed with pericarditis. Cardiac catheterization negative. Eventually grew strep intermedius from his pericardium. Acute pericarditis. Secondary to strep intermedius. On Invanz and vancomycin initially. On ceftriaxone now. Infectious Disease is following. Cardiology following as well. Pulmonary infiltrates and effusions. Seen on x-ray and abdominal CT scan. Aspiration possible based on his history of nausea and vomiting, but x-ray not typical for this. Has had a right upper lobe infiltrate present since admission, better defined on CT scan of the chest now. Pulmonary status improved. Hypoxemia present on admission has significantly improved , but saturations still marginal at times. No indication for bronchoscopy now. Will treat with increased mucolytics and bronchopulmonary therapies. If this infiltrate does not resolve on outpatient follow-up bronchoscopy may be needed. Also has evidence of pulmonary granulomatous disease and calcified hilar/ mediastinal nodes. Sepsis. Possibly present on admission however hypotension from tamponade could give a similar picture. Now resolved. Tobacco abuse. Patient has been smoking for approximately 25 years. Now down to 1 cigarette per day. No known history of asthma or COPD. Clinically stable. Plan: Continue antibiotics. Increase inhaled therapies and mucolytics while here. Probably will be able to go home soon. I will follow him up in the office and arrange a chest x-ray in a number weeks. If his right upper lobe infiltrate does not resolve over 6-8 weeks then bronchoscopy will be required. Discussed with patient and Dr. Bermudez. Subjective: Feels much better. Denies shortness of breath. Denies chest pain. No cough or mucus. Some nasal congestion. Objective: Vital Signs Temp Pulse Resp BP Pulse Ox 37.1 C 93 18 112/76 91 L 05/22/17 16:33 05/22/17 16:33 05/22/17 16:33 05/22/17 16:33 05/22/17 16:33 Laboratory Results 05/22/17 06:05 05/18/17 04:00 05/21/17 05/22/17 05/23/17 05:59 05:59 05:59 Intake Total 830 1080 Output Total 0 Balance 830 1080 PT 13.6 SEC (12.0-15.0) 05/16/17 12:25 INR 1.05 (0.83-1.16) 05/16/17 12:25 CT chest: Dense right upper lobe apical posterior infiltrate. No masses. Bronchi in the area are patent. Calcified lymph nodes noted consistent with old granulomatous disease. Small residual pericardial effusion Physical Exam - Physical Exam General Appearance: thin EENT: other ( on room air) Neck: normal inspection Respiratory: lungs clear Cardiac/Chest: regular rate, rhythm, No friction rub Abdomen: normal bowel sounds, non-tender, soft Skin: normal color, warm/dry Extremities: No pedal edema Neuro/Psych: no motor/sensory deficits, No cognition abnormalities ICD10 Worksheet Patient Problems: Problems Problem Status Onset Pericarditis Acute Chest pain Acute
[2017-05-22] MEDS: FLUTICASONE NASAL 120 SPRAYS/16 GM MDI EACHNARE SCH (19:46)
[2017-05-22] MEDS: oxyCODONE IR 5 MG TAB PO PRN (21:08)
[2017-05-22] MEDS: IPRATROPIUM/ALBUTEROL 3 ML DEYVIAL IH SCH (22:59)
[2017-05-22] MEDS: ACETYLCYSTEINE 20% IH/PO 30 ML VIAL IH SCH (22:59)
[2017-05-23] MEDS: IPRATROPIUM/ALBUTEROL 3 ML DEYVIAL IH SCH ×2 (05:33→11:11)
[2017-05-23] MEDS: ACETYLCYSTEINE 20% IH/PO 30 ML VIAL IH SCH ×2 (05:33→11:11)
[2017-05-23] MEDS: NICOTINE 21 MG/24 HR PATCH TD SCH (09:49)
[2017-05-23] MEDS: COLCHICINE 0.6 MG CAP/TAB PO SCH (09:49)
[2017-05-23] MEDS: cefTRIAXone 2 GM in D5W 50 ML IV SCH (09:49)
[2017-05-23] MEDS: FLUTICASONE NASAL 120 SPRAYS/16 GM MDI EACHNARE SCH (09:50)
[2017-05-23 11:31] LABS: HEMATOCRIT 42.3 % (40.0-51.0); HEMOGLOBIN 14.2 g/dL (13.7-17.5); MEAN CELL HEMOGLOBIN 29.6 pg (27.9-34.1); MEAN CELL HEMOGLOBIN CONCENTR. 33.6 g/dL (32.4-36.7); MEAN CELL VOLUME 88.3 fL (81.5-99.8); RED BLOOD CELL COUNT 4.79 10^6/uL (4.40-6.38); RED CELL DISTRIBUTION WIDTH 13.2 % (11.5-15.2)
[2017-05-23 13:13] VITALS: BP 105/75; PULSE 90; RESP 20; TEMP 98.5; O2SAT 90
--- NOTE | 2017-05-23 13:44 | HOSPPROG ---
Hospitalist Progress Note Assessment/Plan: #Streptococcus pericarditis -4 wks IV abx through 06/15, PICC in place -repeat TTE with small effusion #RUL infiltrate: CT shows RUL segmental consolidation. Will fU with Dr. Parnell for CXR. If persistent, consider bronch outpatient #Sepsis: resolved #Leukocytosis: afebrile. CBC now 15. Will d/w ID team #Acute hypoxemic resp failure: small consolidation on CT that does not warrant bronch. #THC dependence: counseled on cessation #Diet: regular #DVT ppx: SCD, ambulating #Disp: warrants inpt admission with elevated WBC, cont IV abx Subjective: feeling well. No SOB or CP. Nasal drainage improved Objective: Vital Signs Temp Pulse Resp BP Pulse Ox 36.9 C 90 20 105/75 90 L 05/23/17 12:00 05/23/17 12:00 05/23/17 12:00 05/23/17 12:00 05/23/17 12:00 Laboratory Results 05/23/17 11:25 05/18/17 04:00 05/22/17 05/23/17 05/24/17 05:59 05:59 05:59 Intake Total 1080 1850 Balance 1080 1850 PT 13.6 SEC (12.0-15.0) 05/16/17 12:25 INR 1.05 (0.83-1.16) 05/16/17 12:25 - Physical Exam Constitutional: other (thin) Eyes: PERRL Ears, Nose, Mouth, Throat: other (poor dentition) Cardiovascular: regular rate and rhythym, no murmur, rub, or gallop Respiratory: no respiratory distress, other (crackles at BL bases) Gastrointestinal: normoactive bowel sounds, soft, non-tender abdomen Genitourinary: no bladder fullness Skin: warm Musculoskeletal: full muscle strength Neurologic: AAOx3, CN II-XII Intact Psychiatric: interacting appropriately ICD10 Worksheet Patient Problems: Problems Problem Status Onset Pericarditis Acute Chest pain Acute
--- NOTE | 2017-05-23 14:10 | PCMIDPN ---
Assessment/Plan: Assessment/Plan: * Bacterial pericarditis due to Streptococcus intermedius status post drainage: Clinically improved. Plan 4 weeks of ceftriaxone on 3 [place] via PICC line. Plan weekly CBC and CMP to monitor therapy. Patient also noted to have atypical lymphocytes on blood smear which raises possibility that had preceding viral pericarditis as initial etiology for pericardial effusion and subsequently developed bacterial pericarditis related to poor dentition/ secondary seeding. * Leukocytosis: See above discussion. May be in part leukemoid in etiology. Do not think requires continued hospitalization based on leukocytosis. This will continue to be monitored as outpatient and he has scheduled follow-up with Dr. Bermudez on 05/27/2017. * Right upper lobe infiltrate: Please see notes of Dr. Bermudez and Dr. Parnell. Will need continued follow-up over time. 05/23/17 14:07 05/23/17 14:11 Subjective: Patient feels well. Up ambulating without difficulty. No chest pain. Objective: Vital Signs Temp Pulse Resp BP Pulse Ox 36.9 C 90 20 105/75 90 L 05/23/17 12:00 05/23/17 12:00 05/23/17 12:00 05/23/17 12:00 05/23/17 12:00 Laboratory Results 05/23/17 11:25 05/18/17 04:00 05/22/17 05/23/17 05/24/17 05:59 05:59 05:59 Intake Total 1080 1850 Balance 1080 1850 Ceftriaxone #5 - Physical Exam General Appearance: alert, no apparent distress EENT: poor dentition, No conjunctival petechiae Respiratory: lungs clear, No respiratory distress Cardiac/Chest: regular rate, rhythm, No friction rub Abdomen: non-tender, No distended Skin: No embolic lesions - Line/s RUE PICC Lines: No drainage, No erythema ICD10 Worksheet Patient Problems: Problems Problem Status Onset Pericarditis Acute Chest pain Acute
--- NOTE | 2017-05-23 17:10 | SOAPPROG ---
SOAP Progress Note Assessment/Plan: Assessment: 41-year-old admitted 05/16 with pericardial chest pain and ongoing nausea and vomiting. He had been in the emergency room in the days prior and diagnosed with pericarditis. Cardiac catheterization negative. Eventually grew strep intermedius from his pericardium. Acute pericarditis. Secondary to strep intermedius. On Invanz and vancomycin initially. On ceftriaxone now. Infectious Disease is following. Cardiology following as well. Pulmonary infiltrates and effusions. Seen on x-ray and abdominal CT scan. Aspiration possible based on his history of nausea and vomiting, but x-ray not typical for this. Has had a right upper lobe infiltrate present since admission, better defined on CT scan of the chest now. Pulmonary status improved. Hypoxemia present on admission has significantly improved , but saturations still marginal at times. No indication for bronchoscopy now. Will treat with increased mucolytics and bronchopulmonary therapies. If this infiltrate does not resolve on outpatient follow-up bronchoscopy may be needed. Also has evidence of pulmonary granulomatous disease and calcified hilar/ mediastinal nodes. Sepsis. Possibly present on admission however hypotension from tamponade could give a similar picture. Now resolved. Tobacco abuse. Patient has been smoking for approximately 25 years. Now down to 1 cigarette per day. No known history of asthma or COPD. Clinically stable. Plan: Continue antibiotics per ID. Okay for discharge today. Smoking cessation encouraged. I will follow him back in the office in approximately 3 weeks. Contact information and instructions were given. Pulmonary function studies will be done. Follow-up chest x-ray will be done in 6 weeks. He will also be following up with Infectious Disease for his IV antibiotics. If his right upper lobe infiltrate does not resolve over 6-8 weeks then bronchoscopy will be required. Subjective: doing well, ready to go home. Denies shortness of breath, cough or mucus. No chest pain Objective: Vital Signs Temp Pulse Resp BP Pulse Ox 36.9 C 90 20 105/75 90 L 05/23/17 12:00 05/23/17 12:00 05/23/17 12:00 05/23/17 12:00 05/23/17 12:00 Laboratory Results 05/23/17 11:25 05/18/17 04:00 05/22/17 05/23/17 05/24/17 05:59 05:59 05:59 Intake Total 1080 1850 Balance 1080 1850 PT 13.6 SEC (12.0-15.0) 05/16/17 12:25 INR 1.05 (0.83-1.16) 05/16/17 12:25 Physical Exam - Physical Exam General Appearance: alert, no apparent distress, thin EENT: normal ENT inspection Neck: normal inspection Respiratory: lungs clear, No rales, No rhonchi Cardiac/Chest: regular rate, rhythm, No friction rub Abdomen: normal bowel sounds, non-tender, soft Skin: normal color, warm/dry Extremities: No pedal edema Neuro/Psych: no motor/sensory deficits, No cognition abnormalities ICD10 Worksheet Patient Problems: Problems Problem Status Onset Chest pain Acute Pericarditis Acute
--- NOTE | 2017-05-23 22:55 | GDS ---
[f rep st] DISCHARGE SUMMARY DISCHARGE DIAGNOSES: 1. Streptococcus pericarditis. 2. Right upper lobe infiltrate. 3. Sepsis. 4. Leukocytosis. 5. Acute hypoxemic respiratory failure. 6. THC dependence. 7. Tobacco abuse. CONSULTATIONS: 1. Cardiology. 2. Infectious Disease. 3. Cardiovascular surgery. HISTORY OF PRESENT ILLNESS: The patient is a 41-year-old male with history of tobacco abuse and THC use, who arrived to the ER for the third time in 3 days. He initially presented with severe left-sided chest pain, and at that time EKG showed diffuse ST elevations. He underwent cardiac catheterization, which showed normal coronaries, and was diagnosed with pericarditis. He was diagnosed on colchicine and NSAIDs. He re-presented to the ER with uncontrolled nausea, vomiting, and again discharged this time with Zofran. He lastly presented again after severe intractable nausea, vomiting, his chest pain had not improved. He also reported new productive cough over the prior day to admission and sweats. HOSPITAL COURSE BY PROBLEM: 1. Streptococcus pericarditis and moderate effusion: The patient underwent a pericardiocentesis on 05/17/2017 given early signs of tamponade. Repeat echocardiograms have remained stable. The patient has been treated on IV ceftriaxone. This will continue through 06/15/2017. He will have a weekly CBC and CMP. 2. Acute chest pain: Secondary to pericarditis. Normal cardiac cath. Continue colchicine and p.r.n. NSAIDs. 3. Acute hypoxic respiratory failure: Secondary to acute illness. CTA was performed that was negative for PE. It did show a small right upper lobe consolidation. This was reviewed by Dr. Parnell and Dr. Bermudez. At this time, no bronchoscopy is warranted. He can follow up with Dr. Parnell and repeat an x- ray to determine if further intervention warranted. 4. Leukocytosis. CBC has trended up over the last couple days, now 15. He is on appropriate antibiotics, and has remained afebrile, and actually is symptom free at this point, with no chest pain or shortness of breath. I query if there was a preceding viral pericarditis, as atypical lymph nodes noticed on blood smear. I also wonder if pericarditis was due to his poor dentition. Given the fact that he is afebrile and feeling well, Dr. Phelan and I believe it is reasonable for him to be discharged on ceftriaxone. He is to follow up with Dr. Bermudez 05/27/2017. 5. Right upper lobe infiltrate: Again, the patient will be seen by Dr. Bermudez and Dr. Parnell as an outpatient. 6. THC abuse. The patient was counseled on cessation. 7. Tobacco abuse. The patient counseled on cessation. 8. Sepsis secondary to Streptococcus pericarditis. Resolved. DISPOSITION: The patient is stable for discharge. 1. The patient will follow up daily for ceftriaxone administration. 2. Follow up Dr. Bermudez on 05/27/2017. 3. Follow up with Dr. Parnell in 4-6 weeks. 4. Weekly CBC and CMP. /[id number]/MODL MTDD
== END 2017-05-23 16:23 | disposition home or self-care (01) | DRG 871 ==
LOC: F2W 17:16 → F2N 05-17 11:43 → F2W 05-19 12:42
PROVIDERS: ADMIT Internal Medicine; ATTEND Internal Medicine
PROC: 0W9D3ZX Drainage of Pericardial Cavity, Percutaneous Approach, Diagnostic (ICD-10-PCS; principal; 2017-05-17)
PROC: 02HV33Z Insertion of Infusion Device into Superior Vena Cava, Percutaneous Approach (ICD-10-PCS; 2017-05-20)
DX: A40.8 Other streptococcal sepsis (principal); J96.01 Acute respiratory failure with hypoxia; I30.1 Infective pericarditis; I31.3 Pericardial effusion (noninflammatory); R91.1 Solitary pulmonary nodule; F12.20 Cannabis dependence, uncomplicated; Z72.0 Tobacco use
CPT/HCPCS: 80307; 96374; C1751; G0472; G0480; J0696; J1170; J1335; J1885; J2250; J2405; J3010; J3370; Q9967

== ENCOUNTER 2017-08-10 17:44 | Emergency (ER) | payer MEDICAID ==
[2017-08-10 18:13] VITALS: BP 117/81; PULSE 90; RESP 18; TEMP 98.4; O2SAT 92
--- NOTE | 2017-08-10 18:20 | EDPHY ---
H & P Stated Complaint: dropped cast iron skillet on Left Foot Time Seen by Provider: 08/10/17 18:16 HPI/ROS: CHIEF COMPLAINT: Left toe injury HISTORY OF PRESENT ILLNESS: The patient is a 42-year-old man who comes to the emergency department complaining of left little toe pain. He states that he dropped a heavy cast iron skillet on it 2 days ago from about 4 feet high. He has bruising and swelling to the area. He states that the swelling is improved since the initial injury. He has continued pain however. He is ambulatory. REVIEW OF SYSTEMS: Constitutional: denies: chills, fever, recent illness, recent injury EENTM: denies: blurred vision, double vision, nose congestion Respiratory: denies: cough, shortness of breath Cardiac: denies: chest pain, irregular heart rate, lightheadedness, palpitations Gastrointestinal/Abdominal: denies: abdominal pain, diarrhea, nausea, vomiting, blood streaked stools Genitourinary: denies: dysuria, frequency, hematuria, pain Musculoskeletal: See HPI Skin: denies: lesions, rash, jaundice, bruising Neurological: denies: headache, numbness, paresthesia, tingling, dizziness, weakness Hematologic/Lymphatic: denies: blood clots, easy bleeding, easy bruising Immunologic/allergic: denies: HIV/AIDS, transplant EXAM: GENERAL: Well-appearing, well-nourished and in no acute distress. HEAD: Atraumatic, normocephalic. EYES: Pupils equal round and reactive to light, extraocular movements intact, sclera anicteric, conjunctiva are normal. ENT: TMs normal, nares patent, oropharynx clear without exudates. Moist mucous membranes. NECK: Normal range of motion, supple without lymphadenopathy or JVD. LUNGS: Breath sounds clear to auscultation bilaterally and equal. No wheezes rales or rhonchi. HEART: Regular rate and rhythm without murmurs, rubs or gallops. ABDOMEN: Soft, nontender, normoactive bowel sounds. No guarding, no rebound. No masses appreciated. BACK: No CVA tenderness, no spinal tenderness, step-offs or deformities EXTREMITIES: Mild erythema and swelling to left little toe. The contusion just above toenail. Pain with range of motion. small contusion to 4th toe dorsally. No swelling. NEUROLOGICAL: Cranial nerves II through XII grossly intact. Normal speech, normal gait. 5/5 strength, normal movement in all extremities, normal sensation PSYCH: Normal mood, normal affect. SKIN: Warm, dry, normal turgor, no visible rashes or lesions. Source: Patient Exam Limitations: No limitations - Personal History Current Tetanus Diphtheria and Acellular Pertussis (TDAP): Yes - Medical/Surgical History Hx Asthma: No Hx Chronic Respiratory Disease: No Hx Diabetes: No Hx Cardiac Disease: No Hx Renal Disease: No Hx Cirrhosis: No Hx Alcoholism: No Hx HIV/AIDS: No Hx Splenectomy or Spleen Trauma: No Other PMH: Pneumonia 2014. pericarditis dx 05/15/17 - Family History Significant Family History: No pertinent family hx - Social History Smoking Status: Current some day smoker Alcohol Use: Sober Drug Use: None Constitutional: Initial Vital Signs Temperature (C) 36.9 C 08/10/17 18:11 Heart Rate 90 08/10/17 18:11 Respiratory Rate 18 08/10/17 18:11 Blood Pressure 117/81 H 08/10/17 18:11 O2 Sat (%) 92 08/10/17 18:11 O2 Delivery Mode Room Air Allergies/Adverse Reactions: No Known Allergies Allergy (Verified 05/13/17 04:04) Home Medications: Medication Instructions Recorded NK [No Known Home Meds] 08/10/17 Medical Decision Making - Diagnostics Imaging Results: Imaging Impressions Foot X-Ray 08/10/17 18:14 Impression: There is no acute fracture identified. Imaging: I viewed and interpreted images myself ED Course/Re-evaluation: We discussed the patient's x-ray results. He is placed in a postop shoe and we discussed follow-up and pain control and treatment. We discussed indications for returning. Differential Diagnosis: Partial list of the Differential diagnosis considered include but were not limited to; fracture, subungual hematoma and although unlikely based on the history and physical exam, I also considered infection, dislocated. I discussed these differential diagnoses and the plan with the patient as well as the usual and expected course. The patient understands that the diagnosis is provisional and that in medicine we are not always correct and that further workup is often warranted. Usual and customary warnings were given. All of the patient's questions were answered. The patient was instructed to return to the emergency department should the symptoms at all worsen or return, otherwise to followup with the physician as we discussed. Departure - Departure Disposition: Home, Routine, Self-Care Clinical Impression: Toe fracture, left Qualifiers: Encounter type: initial encounter Toe: lesser toe Fracture type: closed Phalanx : distal Fracture alignment: nondisplaced Qualified Code(s): S92.535A - Nondisplaced fracture of distal phalanx of left lesser toe(s), initial encounter for closed fracture Condition: Fair Instructions: Toe Fracture (ED) Referrals: [facility],. [Clinic] - As per Instructions
== END 2017-08-10 18:40 | disposition home or self-care (01) ==
DX: S92.535A Nondisplaced fracture of distal phalanx of left lesser toe(s), initial encounter for closed fracture (principal); F17.200 Nicotine dependence, unspecified, uncomplicated; W20.8XXA Other cause of strike by thrown, projected or falling object, initial encounter; Y99.8 Other external cause status

== ENCOUNTER 2018-05-05 10:43 | Emergency (ER) | payer SELFPAY ==
[2018-05-05] MEDS ORDERED: ONDANSETRON 4 MG/2 ML VIAL IVP ONE (11:05)
[2018-05-05] MEDS ORDERED: NS 1,000 ML IV ONE ×2 (11:07→12:01)
[2018-05-05] MEDS ORDERED: PROMETHAZINE HCL 25 MG/ML INJ IVP ONE (12:01)
[2018-05-05 12:06] LABS: PLATELET COUNT 197 10^3/uL (150-400)
--- NOTE | 2018-05-05 12:08 | EDPHY ---
H & P Time Seen by Provider: 05/05/18 11:43 HPI/ROS: CHIEF COMPLAINT: Vomiting, diarrhea HISTORY OF PRESENT ILLNESS: 42-year-old male presents to the emergency department with multiple episodes of vomiting and diarrhea that started yesterday. Patient has vomited numerous times and is having difficulty keeping anything down including water. He states that he has urinated however. He denies abdominal pain or back pain. Denies headache. He feels very chilled and achy and especially having pain in the left side of his body. Denies a headache. No reported trauma. No known ill contacts. No pain in his chest or difficulty breathing. REVIEW OF SYSTEMS: Constitutional: No fever, no chills. Eyes: No double or blurry vision. ENT: No sore throat. Respiratory: No cough, no shortness of breath. Cardiac: No chest pain. Gastrointestinal: As above. Genitourinary: No dysuria. Musculoskeletal: No neck or back pain. Skin: No rashes. Neurological: No headache. Past Medical/Surgical History: Marijuana use Social History: Currently homeless Smoking Status: Current some day smoker Physical Exam: General Appearance: Alert, no distress. Temp 37.1 degrees. Mentating normally and answering questions appropriately. Eyes: Pupils equal and round. Extraocular motions are all intact. ENT: Mouth: Mucous membranes moist. Missing numerous teeth. Respiratory: No wheezing, rhonchi, or rales, lungs are clear to auscultation. Cardiovascular: Regular rate and rhythm. Gastrointestinal: Abdomen is soft and nontender, no masses, no rebound or guarding, bowel sounds normal. No CVA tenderness bilaterally. Neurological: Alert and oriented x 3, cranial nerves II through XII grossly intact Skin: Warm and dry, no rashes. Musculoskeletal: Nontender to palpate along the cervical, thoracic or lumbar spine. Neck is supple. Extremities: Full range of motion and no peripheral edema. Psychiatric: Patient is oriented X 3, there is no agitation. Constitutional: Initial Vital Signs Temperature (C) 37.5 C 05/05/18 10:51 Heart Rate 82 05/05/18 10:51 Respiratory Rate 18 05/05/18 10:51 Blood Pressure 108/79 05/05/18 10:51 O2 Sat (%) 98 05/05/18 10:51 O2 Delivery Mode Room Air Allergies/Adverse Reactions: No Known Allergies Allergy (Verified 05/13/17 04:04) Home Medications: Medication Instructions Recorded NK [No Known Home Meds] 08/10/17 Medical Decision Making ED Course/Re-evaluation: 42-year-old male presents to the emergency department with multiple episodes of vomiting and diarrhea. He had an IV established and laboratory studies were drawn. Laboratory studies were all within normal limits. He received 2 L of IV normal saline as well as Zofran and Phenergan. He was feeling much better. He was tolerating p.o. Fluids. Patient's abdominal exam is benign. I do not think imaging studies are indicated. Patient is comfortable being discharged. He was given primary care referral. Differential Diagnosis: Including but not limited to gastroenteritis, dehydration, electrolyte abnormality, acute appendicitis, urinary tract infection, pyelonephritis, kidney stone - Data Points Laboratory Results: Laboratory Results 05/05/18 11:00 05/05/18 11:00 05/05/18 05/05/18 11:00 11:00 WBC 6.20 10^3/uL 10^3/uL (3.80-9.50) RBC 5.42 10^6/uL 10^6/uL (4.40-6.38) Hgb 17.0 g/dL g/dL (13.7-17.5) Hct 48.7 % % (40.0-51.0) MCV 89.9 fL fL (81.5-99.8) MCH 31.4 pg pg (27.9-34.1) MCHC 34.9 g/dL g/dL (32.4-36.7) RDW 13.0 % % (11.5-15.2) Plt Count 197 10^3/uL 10^3/uL (150-400) MPV 9.9 fL fL (8.7-11.7) Neut % (Auto) 71.2 % % (39.3-74.2) Lymph % (Auto) 18.5 % % (15.0-45.0) [place] % (Auto) 9.5 % % (4.5-13.0) Eos % (Auto) 0.0 % L % (0.6-7.6) Baso % (Auto) 0.6 % % (0.3-1.7) Nucleat RBC Rel Count 0.0 % % (0.0-0.2) Absolute Neuts (auto) 4.41 10^3/uL 10^3/uL (1.70-6.50) Absolute Lymphs (auto) 1.15 10^3/uL 10^3/uL (1.00-3.00) Absolute Monos (auto) 0.59 10^3/uL 10^3/uL (0.30-0.80) Absolute Eos (auto) 0.00 10^3/uL L 10^3/uL (0.03-0.40) Absolute Basos (auto) 0.04 10^3/uL 10^3/uL (0.02-0.10) Absolute Nucleated RBC 0.00 10^3/uL 10^3/uL (0-0.01) Immature Gran % 0.2 % % (0.0-1.1) Immature Gran # 0.01 10^3/uL 10^3/uL (0.00-0.10) Sodium 135 mEq/L mEq/L (135-145) Potassium 4.6 mEq/L mEq/L (3.3-5.0) Chloride 101 mEq/L mEq/L (97-110) Carbon Dioxide 23 mEq/l mEq/l (22-31) Anion Gap 11 mEq/L mEq/L (8-16) BUN 15 mg/dL mg/dL (7-23) Creatinine 1.0 mg/dL mg/dL (0.7-1.3) Estimated GFR > 60 Glucose 100 mg/dL mg/dL (70-100) Calcium 9.5 mg/dL mg/dL (8.5-10.4) Medications Given: Discontinued Medications Sodium Chloride (Ns) 1,000 mls @ 0 mls/hr IV EDNOW ONE; Wide Open PRN Reason: Protocol Stop: 05/05/18 11:08 Last Admin: 05/05/18 11:11 Dose: 1,000 mls Sodium Chloride (Ns) 1,000 mls @ 0 mls/hr IV ONCE ONE PRN Reason: Wide Open Stop: 05/05/18 12:02 Last Admin: 05/05/18 12:04 Dose: 1,000 mls Ondansetron HCl (Zofran) 4 mg IVP EDNOW ONE Stop: 05/05/18 11:06 Last Admin: 05/05/18 11:11 Dose: 4 mg Promethazine HCl (Phenergan) 12.5 mg IVP EDNOW ONE Stop: 05/05/18 12:02 Last Admin: 05/05/18 12:04 Dose: 12.5 mg Departure - Departure Disposition: Home, Routine, Self-Care Clinical Impression: Gastroenteritis Condition: Good Instructions: Gastroenteritis (ED) Additional Instructions: Clear liquids and slowly advance diet as tolerated. Abdominal Pain: Return to the Emergency Department immediately for increasing pain, fever, vomiting, or if not completely better in 8-12 hours. Referrals: [facility],. 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
[2018-05-05 13:37] VITALS: BP 129/91
== END 2018-05-05 13:36 | disposition home or self-care (01) ==
DX: K52.9 Noninfective gastroenteritis and colitis, unspecified (principal); F17.200 Nicotine dependence, unspecified, uncomplicated; E86.9 Volume depletion, unspecified
CPT/HCPCS: 96374; J2405; J2550